=== PATIENT | female | born 2000 | race African-American/Black ===

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

== ENCOUNTER 2018-01-21 20:51 | Emergency (ER) | payer SELFPAY ==
--- NOTE | 2018-01-21 21:13 | ED.ADGEN ---
Past History Past Medical History: No Pertinent History, Migraines, UTI Past Surgical History: No Surgical History Smoking: Non-smoker Alcohol Use: None Drug Use: None Adult General Chief Complaint Chief Complaint ".. I got a headache.. it been constant the last couple days.. " [facility] HPI Patient is a 17 year old female who presents with above hx and complaints generalized headache that has been somewhat persistent last 2 days. No history of travel. No history of trauma. No specific ill contacts. Patient has had some nausea. Patient also has had some congestion. Patient up-to-date with vaccinations. No flu vaccination however this fall. Patient is normally healthy. She follows with Dr. Jojo Mckinnon. She has had previous headaches before that by history or diagnosed as migraines. No history of drug use. Review of Systems Review of Systems Constitutional: Denies fever or chills [] Eyes: Denies change in visual acuity, redness, or eye pain [] HENT: Denies nasal congestion or sore throat [] Respiratory: Denies cough or shortness of breath [] Cardiovascular: No additional information not addressed in HPI [] GI: Denies abdominal pain, nausea, vomiting, bloody stools or diarrhea [] : Denies dysuria or hematuria [] Musculoskeletal: Denies back pain or joint pain [] Integument: Denies rash or skin lesions [] Neurologic: Complaints of headache. Denies, focal weakness or sensory changes [] Endocrine: Denies polyuria or polydipsia [] All other systems were reviewed and found to be within normal limits, except as documented in this note. Family History Family History Noncontributory Current Medications Current Medications Current Medications Medications (Trade) Dose Ordered Sig/Oumar Start Time Stop Time Status Last Admin Dose Admin Cephalexin HCl (Keflex) 500 mg 1X ONCE 01/21/18 23:45 01/21/18 23:46 DC 01/21/18 23:45 500 MG Diphenhydramine HCl (Benadryl) 50 mg 1X ONCE 01/21/18 23:45 01/21/18 23:46 DC 01/21/18 23:45 50 MG Ketorolac Tromethamine (Toradol) 30 mg 1X ONCE 01/21/18 23:45 01/21/18 23:46 DC 01/21/18 23:45 30 MG Magnesium Hydroxide (Milk Of Magnesia) 2,400 mg 1X ONCE 01/21/18 23:45 01/21/18 23:46 DC 01/21/18 23:45 2,400 MG Multivitamins/ Minerals 10 ml/ Folic Acid 1 mg/ Thiamine HCl 100 mg/Lactated Ringer's 1,011.2 ml @ 1,000 mls/ hr 1X ONCE 01/21/18 21:45 01/21/18 22:45 DC 01/21/18 21:45 1,000 MLS/HR Ondansetron HCl (Zofran) 8 mg 1X ONCE 01/21/18 21:30 01/21/18 21:39 DC 01/21/18 21:30 8 MG Oxycodone/ Acetaminophen (Percocet 5/325) 2 tab 1X ONCE 01/21/18 23:45 01/21/18 23:46 DC 01/21/18 23:45 2 TAB Promethazine HCl (Phenergan Im) 25 mg 1X ONCE 01/21/18 23:45 01/21/18 23:46 DC 01/21/18 23:45 25 MG Sumatriptan Succinate (Imitrex) 6 mg 1X ONCE 01/21/18 23:45 01/21/18 23:46 DC 01/21/18 23:45 6 MG See nursing for home medications Allergies Allergies Allergies Coded Allergies Type Severity Reaction Last Updated Verified No Known Drug Allergies 06/04/14 No Physical Exam Physical Exam Constitutional: Well developed, well nourished, moderately acute distress, non- toxic appearance. [] HENT: Normocephalic, atraumatic, bilateral external ears normal, oropharynx moist, no oral exudates, nose rhinorrhea. No temporal artery tenderness Eyes: PERRLA, EOMI, conjunctiva normal, no discharge. [] Neck: Normal range of motion, no tenderness, supple, no stridor. [] Cardiovascular:Heart rate regular rhythm, no murmur [] Lungs & Thorax: Bilateral breath sounds clear to auscultation [] Abdomen: Bowel sounds normal, soft, no tenderness, no masses, no pulsatile masses. [] Skin: Warm, dry, no erythema, no rash. [] Back: No tenderness, no CVA tenderness. [] Extremities: No tenderness, no cyanosis, no clubbing, ROM intact, no edema. [] DTRs are +2 patella and brachial. Serologist equal. No drift. Neurologic: Alert and oriented X 3, normal motor function, normal sensory function, no focal deficits noted. [] Psychologic: Affect anxious, judgement normal, mood normal. [] Current Patient Data Vital Signs Vital Signs Date Time Temp Pulse Resp B/P (MAP) Pulse Ox O2 Delivery O2 Flow Rate FiO2 01/22/18 00:01 100.8 102 20 99 Room Air Lab Results Laboratory Tests Test 01/21/18 21:24 01/21/18 22:00 Urine Collection Type Unknown Urine Color Yellow Urine Clarity Hazy Urine pH 5.5 Urine Specific [place] 1.020 Urine Protein 30 mg/dl (NEG-TRACE) Urine Glucose (UA) Neg mg/dL (NEG) Urine Ketones (Stick) Trace mg/dL (NEG) Urine Blood Large (NEG) Urine Nitrite Neg (NEG) Urine Bilirubin Neg (NEG) Urine Urobilinogen Dipstick 2 mg/dL (0.2 mg/dL) Urine Leukocyte Esterase Small (NEG) Urine RBC >40 /HPF (0-2) Urine WBC 5-10 /HPF (0-4) Urine Squamous Epithelial Cells Few /LPF Urine Bacteria Few /HPF (0-FEW) Urine Mucus Mod /LPF Urine Opiates Screen Neg (NEG) Urine Methadone Screen Neg (NEG) Urine Barbiturates Neg (NEG) Urine Phencyclidine Screen Neg (NEG) Urine Amphetamine/Methamphetamine Neg (NEG) Urine Benzodiazepines Screen Neg (NEG) Urine Cocaine Screen Neg (NEG) Urine Cannabinoids Screen Neg (NEG) Urine Ethyl Alcohol Neg (NEG) Influenza Type A (Rapid) Negative (NEGATIVE) Influenza Type B (Rapid) Negative (NEGATIVE) Group A Streptococcus Rapid Negative (NEGATIVE) White Blood Count 8.1 x10^3/uL (4.0-11.0) Red Blood Count 3.86 x10^6/uL (3.50-5.40) Hemoglobin 12.7 g/dL (12.0-15.5) Hematocrit 36.5 % (36.0-47.0) Mean Corpuscular Volume 95 fL (79-100) Mean Corpuscular Hemoglobin 33 pg (25-35) Mean Corpuscular Hemoglobin Concent 35 g/dL (31-37) Red Cell Distribution Width 13.1 % (11.5-14.5) Platelet Count 248 x10^3/uL (140-400) Neutrophils (%) (Auto) 80 % (31-73) H Lymphocytes (%) (Auto) 13 % (24-48) L Monocytes (%) (Auto) 7 % (0-9) Eosinophils (%) (Auto) 0 % (0-3) Basophils (%) (Auto) 0 % (0-3) Neutrophils # (Auto) 6.4 x10^3uL (1.8-7.7) Lymphocytes # (Auto) 1.0 x10^3/uL (1.0-4.8) Monocytes # (Auto) 0.6 x10^3/uL (0.0-1.1) Eosinophils # (Auto) 0.0 x10^3/uL (0.0-0.7) Basophils # (Auto) 0.0 x10^3/uL (0.0-0.2) Erythrocyte Sedimentation Rate 7 (0-25) Prothrombin Time 11.8 SEC (9.4-11.4) H Prothrombin Time INR 1.2 (0.9-1.1) H PTT 31 SEC (23-33) Sodium Level 138 mmol/L (136-145) Potassium Level 3.4 mmol/L (3.5-5.1) L Chloride Level 102 mmol/L (98-107) Carbon Dioxide Level 26 mmol/L (21-32) Anion Gap 10 (6-14) Blood Urea Nitrogen 6 mg/dL (7-20) L Creatinine 0.7 mg/dL (0.6-1.0) Estimated GFR (Cockcroft-Gault) 130.4 Glucose Level 92 mg/dL (70-99) Calcium Level 9.3 mg/dL (8.5-10.1) Magnesium Level 1.7 mg/dL (1.8-2.4) L EKG EKG [] Radiology/Procedures Radiology/Procedures My interpretation CT of head shows no shift, mass, edema, bleed, or fracture. See formal report when available[] Course & Med Decision Making Course & Med Decision Making Pertinent Labs and Imaging studies reviewed. (See chart for details). Patient declines spinal tap this time. Patient exhibits UCAR capacity . Take Tylenol and ibuprofen as needed for discomfort or fever. Take Zofran 8 mg up 4 times a day for nausea and vomiting. Take Imitrex 100 mg at the beginning if any onset of migraine type headache. Take no more than 200 mg Imitrex in a 24 -hour period. For marked discomfort may take Vicoprofen up 4 times a day.. Return if any concerns. Patient to push fruit juices. Patient to take Keflex 500 mg 3 times a day. For 7 days. Must follow up urine cultures. Return if any concerns. Must follow-up primary care. [] Final Impression Final Impression 1. Migraine variant-headache 2. Viral syndrome 3. Hypokalemia 4. Hyper magnesium 5. Urinary tract infection[] Problems: Dragon Disclaimer Dragon Disclaimer This electronic medical record was generated, in whole or in part, using a voice recognition dictation system. JOHN GRADY MD Jan 21, 2018 21:13
[2018-01-21] MEDS ORDERED: ONDANSETRON PF 4 MG/2 ML VIAL. IV ONE (21:30)
[2018-01-21] MEDS ORDERED: MVI, ADULT NO.4 WITH VIT K 10 ML, FOLIC ACID SYRINGE for ER 1 MG, THIAMINE 100 MG in IV... IV ONE ×4 (21:45)
--- NOTE | 2018-01-21 21:50 | RAD ---
Clinical Indication: Severe headaches and weakness Technique: Study is dated January 21, 2018. CT images of the head were obtained from the skull base to the vertex without IV contrast. There are no comparison studies available. One or more of the following individualized dose reduction techniques were utilized for this examination: 1. Automated exposure control 2. Adjustment of the mA and/or kV according to patient size 3. Use of iterative reconstruction technique Findings: The ventricles are normal in size and configuration. Cavum septum pellucidum is noted. There is no hemorrhage, extraaxial collection, mass, or midline shift. There is no large vascular distribution acute infarct. The posterior fossa and brainstem are unremarkable. Orbits are normal. The included paranasal sinuses and mastoid air cells are clear. There is no skull fracture appreciated on bone level images. Impression: No acute intracranial findings. Electronically signed by: Daryl Luong MD (01/21/2018 9:47 PM) [facility]
[2018-01-21 22:09] LABS: INFLUENZA A PATIENT NEGATIVE (NEGATIVE); INFLUENZA B PATIENT NEGATIVE (NEGATIVE)
[2018-01-21 22:10] LABS: AMPHETAMINE/METHAMPHETAMINE NEG (NEG); BARBITURATES NEG (NEG); BENZODIAZEPINES NEG (NEG); CANNABINOIDS NEG (NEG); COCAINE NEG (NEG); METHADONE NEG (NEG); OPIATES NEG (NEG); PHENCYCLIDINE NEG (NEG)
[2018-01-21 22:16] LABS: BILIRUBIN,URINE NEG (NEG); CLARITY,URINE HAZY; COLOR,URINE YELLOW; GLUCOSE,URINE NEG (NEG); UROBILINOGEN,URINE 2 mg/dL (0.2 mg/dL)
[2018-01-21 22:17] LABS: BACTERIA,URINE FEW /HPF (0-FEW); NITRITE,URINE NEG (NEG); RBC,URINE >40 /HPF (0-2); SQUAMOUS EPITHELIAL CELL,UR FEW /LPF
[2018-01-21 22:40] LABS: BASO % 0 % (0-3); EOS % 0 % (0-3); HEMATOCRIT 36.5 % (36.0-47.0); HEMOGLOBIN 12.7 g/dL (12.0-15.5); LYMPH % 13 % (24-48); MEAN CORPUSCULAR HEMOGLOBIN 33 pg (25-35); MEAN CORPUSCULAR HGB CONC 35 g/dL (31-37); MEAN CORPUSCULAR VOLUME 95 fL (79-100); MONO # 0.6 x10^3/uL (0.0-1.1); MONO % 7 % (0-9); NEUT # 6.4 x10^3uL (1.8-7.7); NEUT % 80 % (31-73); PLATELET COUNT 248 x10^3/uL (140-400); RED BLOOD COUNT 3.86 x10^6/uL (3.50-5.40); RED CELL DISTRIBUTION WIDTH 13.1 % (11.5-14.5); WHITE BLOOD COUNT 8.1 x10^3/uL (4.0-11.0)
[2018-01-21 22:45] LABS: CALCIUM 9.3 mg/dL (8.5-10.1); CREATININE 0.7 mg/dL (0.6-1.0); GFR 130.4; MAGNESIUM 1.7 mg/dL (1.8-2.4); POTASSIUM 3.4 mmol/L (3.5-5.1)
[2018-01-21] MEDS ORDERED: CEPH-264 PO (23:37)
[2018-01-21] MEDS ORDERED: ONDA8TAB12 PO (23:37)
[2018-01-21] MEDS ORDERED: HYDR-79 PO (23:37)
[2018-01-21] MEDS ORDERED: SUMA100T3 PO (23:37)
[2018-01-21] MEDS ORDERED: diphenhydrAMINE 50 MG/ML VIAL IVP ONE (23:45)
[2018-01-21] MEDS ORDERED: SUMAtriptan. 6 MG/0.5 ML VIAL SQ ONE (23:45)
[2018-01-21] MEDS ORDERED: PROMETHAZINE IM 25 MG/ML VIAL IM ONE (23:45)
[2018-01-21] MEDS ORDERED: MAGNESIUM HYDROXIDE 2,400 MG/30 ML ORAL.SUSP. PO ONE (23:45)
[2018-01-21] MEDS ORDERED: oxyCODONE/APAP 5/325 1 TAB TABLET PO ONE (23:45)
[2018-01-21] MEDS ORDERED: CEPHALEXIN 250 MG CAPSULE PO ONE (23:45)
[2018-01-21] MEDS ORDERED: KETOROLAC 30 MG/ML VIAL. IV ONE (23:45)
[2018-01-22 00:35] VITALS: BP 105/43
== END 2018-01-22 00:38 | disposition home or self-care (01) ==
LOC: ER 20:51
DX: G43.909 Migraine, unspecified, not intractable, without status migrainosus (principal); B34.9 Viral infection, unspecified; E87.6 Hypokalemia; E83.41 Hypermagnesemia; N39.0 Urinary tract infection, site not specified
CPT/HCPCS: 36415; 70450; 80048; 80307; 81001; 83735; 85025; 85610; 85651; 85730; 87070; 87086; 87186; 87804; 87880; 96365; 96372; 96375; 99285; J1200; J1885; J2405; J2550; J3030; J7120; G0479

== ENCOUNTER 2018-02-17 23:59 | Emergency (ER) | payer SELFPAY ==
[~2018-02-17] VITALS: Ht 165.1 cm; Wt 58.5 kg
[~2018-02-17 23:59] MED LIST: CEPH-264 PO; HYDR-79 PO; ONDA8TAB12 PO; SUMA100T3 PO
[2018-02-18] MEDS ORDERED: ACETAMINOPHEN 325 MG TABLET PO ONE (01:30)
[2018-02-18] MEDS ORDERED: IV NORMAL SALINE 1,000ML 1,000 ML IV ONE ×2 (01:30→02:15)
--- NOTE | 2018-02-18 01:30 | PHYS DOC ---
Past History Past Medical History: Migraines, UTI Past Surgical History: No Surgical History Smoking: Non-smoker Alcohol Use: None Drug Use: None Adult General Chief Complaint Chief Complaint: MULTIPLE COMPLAINTS HPI HPI 17-year-old female presenting to the emergency department today with left-sided flank pain and a headache. The pain in her flank is sharp shooting pain mild to moderate intermittent and without alleviating factors. She denies polyuria or dysuria. She has a history of UTIs. Her headache is sharp nonradiating mild. She denies neck stiffness or nuchal rigidity. She denies blood in her urine. Review of systems is negative for chest pain shortness of breath. Negative for nausea or vomiting. All other review of systems is negative unless otherwise noted in history of present illness. ED course: 17-year-old female presenting the emergency department today with left flank pain. On arrival she is febrile, well-appearing. Nontoxic appearing. On examination she has normal range of motion of the neck. No nuchal rigidity. Lungs are clear bilaterally. Regular rate and rhythm on cardiac auscultation. Abdomen is soft and nontender palpation without rebound tenderness or guarding. Negative McBurney's point. Negative Stephens sign. Patient has mild left CVA tenderness to palpation. Otherwise unremarkable examination. IV established. Fluids and Tylenol ordered. Urinalysis suggestive of pyelonephritis. Patient has tachycardia and soft blood pressure (90) on reexamination. I ordered a second liter fluids and IV Rocephin. After treatment patient is feeling much better and desires to be discharged home. I discussed risks and benefits of discharge. I am recommending she be admitted to the hospital but she strongly desires to be discharged home. Patient understands risk of and disability. Given the patient's strong desire to give the patient oral Bactrim to leave AGAINST MEDICAL ADVICE. Patient is welcome to come back to be admitted if she feels worse or changes her mind. Review of Systems Review of Systems SEE ABOVE. Current Medications Current Medications Current Medications Medications (Trade) Dose Ordered Sig/Oumar Start Time Stop Time Status Last Admin Dose Admin Acetaminophen (Tylenol) 650 mg 1X ONCE 02/18/18 01:30 02/18/18 01:31 Sodium Chloride 1,000 ml @ 1,000 mls/hr 1X ONCE 02/18/18 01:30 02/18/18 02:29 Allergies Allergies Allergies Coded Allergies Type Severity Reaction Last Updated Verified No Known Drug Allergies 06/04/14 No Physical Exam Physical Exam SEE ABOVE Constitutional: Well developed, well nourished, no acute distress, non-toxic appearance. [] HENT: Normocephalic, atraumatic, bilateral external ears normal, oropharynx moist, no oral exudates, nose normal. [] Eyes: PERRLA, EOMI, conjunctiva normal, no discharge. [] Neck: Normal range of motion, no tenderness, supple, no stridor. [] Cardiovascular:Heart rate regular rhythm, no murmur [] Lungs & Thorax: Bilateral breath sounds clear to auscultation [] Abdomen: Bowel sounds normal, soft, no tenderness, no masses, no pulsatile masses. [] Skin: Warm, dry, no erythema, no rash. [] Back: nontender midline. Extremities: No tenderness, no cyanosis, no clubbing, ROM intact, no edema. [] Neurologic: Alert and oriented X 3, normal motor function, normal sensory function, no focal deficits noted. [] Psychologic: Affect normal, judgement normal, mood normal. [] EKG EKG [] Radiology/Procedures Radiology/Procedures [] Course & Med Decision Making Course & Med Decision Making Pertinent Labs and Imaging studies reviewed. (See chart for details) [] Dragon Disclaimer Dragon Disclaimer This electronic medical record was generated, in whole or in part, using a voice recognition dictation system. Departure Departure: Impression: Primary Impression: Pyelonephritis Disposition: AGAINST MEDICAL ADVICE Condition: GUARDED Referrals: PCP,NO (PCP) NICHOL FRAUSTO MD Patient Instructions: Pyelonephritis, Adult Scripts Sulfamethoxazole/Trimethoprim (BACTRIM DS TABLET) 1 Each Tablet 1 TAB PO BID, #20 TAB Prov: ABRIL SAMANO MD 02/18/18 ABRIL SAMANO MD Feb 18, 2018 01:30
[2018-02-18 01:36] LABS: BASO % 0 % (0-3); EOS % 0 % (0-3); HEMATOCRIT 39.4 % (36.0-47.0); HEMOGLOBIN 13.6 g/dL (12.0-15.5); LYMPH % 12 % (24-48); MEAN CORPUSCULAR HEMOGLOBIN 32 pg (25-35); MEAN CORPUSCULAR HGB CONC 35 g/dL (31-37); MEAN CORPUSCULAR VOLUME 94 fL (79-100); MONO # 0.9 x10^3/uL (0.0-1.1); MONO % 11 % (0-9); NEUT # 6.2 x10^3uL (1.8-7.7); NEUT % 76 % (31-73); PLATELET COUNT 247 x10^3/uL (140-400); RED BLOOD COUNT 4.21 x10^6/uL (3.50-5.40); RED CELL DISTRIBUTION WIDTH 13.7 % (11.5-14.5); WHITE BLOOD COUNT 8.2 x10^3/uL (4.0-11.0)
[2018-02-18 01:51] LABS: PREG TEST PT QUAL NEGATIVE (NEG)
[2018-02-18 01:53] LABS: ALBUMIN 4.2 g/dL (3.4-5.0); CALCIUM 9.1 mg/dL (8.5-10.1); CREATININE 0.8 mg/dL (0.6-1.0); DIRECT BILIRUBIN 0.1 mg/dL (0.0-0.2); GFR 111.8; POTASSIUM 3.4 mmol/L (3.5-5.1); TOTAL BILIRUBIN 0.4 mg/dL (0.2-1.0); TOTAL PROTEIN 8.8 g/dL (6.4-8.2)
[2018-02-18 01:55] LABS: BILIRUBIN,URINE SMALL (NEG); CLARITY,URINE CLOUDY; COLOR,URINE AMBER; GLUCOSE,URINE NEG (NEG); NITRITE,URINE POS (NEG); RBC,URINE >40 /HPF (0-2); UROBILINOGEN,URINE 4 mg/dL (0.2 mg/dL)
[2018-02-18 01:56] LABS: BACTERIA,URINE MANY /HPF (0-FEW); SQUAMOUS EPITHELIAL CELL,UR FEW /LPF; WBC,URINE >40 /HPF (0-4)
[2018-02-18] MEDS ORDERED: SULF1TAB24 PO (02:02)
[2018-02-18] MEDS ORDERED: IV NORMAL SALINE 50ML 50 ML ONE (02:28)
[2018-02-18] MEDS ORDERED: cefTRIAXone SODIUM 1 GM VIAL IV ONE (02:28)
[2018-02-18 03:33] VITALS: BP 100/69
== END 2018-02-18 03:43 | disposition home or self-care (01) ==
LOC: ER 23:59
DX: N12 Tubulo-interstitial nephritis, not specified as acute or chronic (principal); G43.909 Migraine, unspecified, not intractable, without status migrainosus; Z87.440 Personal history of urinary (tract) infections
CPT/HCPCS: 36415; 80048; 80076; 81001; 81025; 83690; 84703; 85025; 87086; 96361; 96365; 99284; J0696; J7030

== ENCOUNTER 2018-02-18 23:18 | Inpatient (IN) | payer SELFPAY ==
[~2018-02-18] VITALS: Ht 165.1 cm; Wt 56.9 kg
[~2018-02-18 23:18] MED LIST changes: +SULF1TAB24 PO
--- NOTE | 2018-02-18 23:39 | ED.ADGEN ---
Past History Past Medical History: Kidney Stones, Migraines, UTI Past Surgical History: Tonsillectomy Smoking: Non-smoker Alcohol Use: None Drug Use: None Adult General Chief Complaint Chief Complaint ".. I got severe Lt. flank pain.... I was here yesterday.. and they wanted to admit me for bad UTI... but I did not stay... and I have not filled my antibiotics..." HPI HPI Patient is a 17 year old female who presents with above hx and complaints of Lt. flank pain and UTI. Pt. has not filled antibiotics. Pt. denies pelvic discharge. Pt. denies trauma, ill contacts, bad food, bowel problems or immunosuppression. Pt. seen yesterday and was to be admitted for UTI and pyelonephritis, but pt. refused. Pt. has hx of prior kidney stone and ovarian cysts. Pt. does not have primary she follows with. Review of Systems Review of Systems Constitutional: Denies fever or chills [] Eyes: Denies change in visual acuity, redness, or eye pain [] HENT: Denies nasal congestion or sore throat [] Respiratory: Denies cough or shortness of breath [] Cardiovascular: No additional information not addressed in HPI [] GI: Complaints of Lt flank and abdominal pain, nausea. Denies vomiting, bloody stools or diarrhea [] : Denies dysuria or hematuria [] Musculoskeletal: Denies back pain or joint pain [] Integument: Denies rash or skin lesions [] Neurologic: Denies headache, focal weakness or sensory changes [] Endocrine: Denies polyuria or polydipsia [] All other systems were reviewed and found to be within normal limits, except as documented in this note. Family History Family History Non-contributory Current Medications Current Medications Current Medications Medications (Trade) Dose Ordered Sig/Oumar Start Time Stop Time Status Last Admin Dose Admin Ceftriaxone Sodium (Rocephin) 1 gm DAILY06 02/19/18 04:00 Ibuprofen (Motrin) 400 mg QIDPRN PRN 02/19/18 03:45 Ketorolac Tromethamine (Toradol) 30 mg 1X ONCE 02/19/18 02:30 02/19/18 02:30 DC Lactated Ringer's 1,000 ml @ 1,000 mls/hr Q1H 02/19/18 00:00 02/19/18 00:59 DC 02/19/18 00:00 1,000 MLS/HR Ondansetron HCl (Zofran) 4 mg PRN Q4HRS PRN 02/19/18 03:45 02/20/18 03:44 Allergies Allergies Allergies Coded Allergies Type Severity Reaction Last Updated Verified No Known Drug Allergies 06/04/14 No Physical Exam Physical Exam Constitutional: Well developed, well nourished, Moderately acute distress, non- toxic appearance. [] HENT: Normocephalic, atraumatic, bilateral external ears normal, oropharynx moist, no oral exudates, nose normal. [] Eyes: PERRLA, EOMI, conjunctiva normal, no discharge. [] Neck: Normal range of motion, no tenderness, supple, no stridor. [] Cardiovascular:Heart rate regular rhythm, no murmur [] Lungs & Thorax: Bilateral breath sounds equal at apex with scattered wheezes on auscultation [] Abdomen: Bowel sounds decreased, soft, lt flank pain and abd. tenderness, no masses, no pulsatile masses. No rebound. Mild distention. Skin: Warm, dry, no erythema, no rash. [] Back: No tenderness, Lt. CVA tenderness. [] Extremities: No tenderness, no cyanosis, no clubbing, ROM intact, no edema. [] No psoas or heel tap. Neurologic: Alert and oriented X 3, normal motor function, normal sensory function, no focal deficits noted. [] Psychologic: Affect anxious, judgement normal, mood normal. [] Current Patient Data Vital Signs Vital Signs Date Time Temp Pulse Resp B/P (MAP) Pulse Ox O2 Delivery O2 Flow Rate FiO2 02/18/18 23:25 99.3 82 20 100 Room Air Lab Results Laboratory Tests Test 02/18/18 23:38 02/18/18 23:50 Urine Collection Type Unknown Urine Color Yellow Urine Clarity Hazy Urine pH 5.5 Urine Specific [place] >=1.030 Urine Protein 100 mg/dl (NEG-TRACE) Urine Glucose (UA) Neg mg/dL (NEG) Urine Ketones (Stick) Trace mg/dL (NEG) Urine Blood Mod (NEG) Urine Nitrite Neg (NEG) Urine Bilirubin Neg (NEG) Urine Urobilinogen Dipstick 1 mg/dL (0.2 mg/dL) Urine Leukocyte Esterase Neg (NEG) Urine RBC 3-5 /HPF (0-2) Urine WBC 1-4 /HPF (0-4) Urine Squamous Epithelial Cells Few /LPF Urine Bacteria Few /HPF (0-FEW) Urine Mucus Slight /LPF Urine Opiates Screen Neg (NEG) Urine Methadone Screen Neg (NEG) Urine Barbiturates Neg (NEG) Urine Phencyclidine Screen Neg (NEG) Urine Amphetamine/Methamphetamine Neg (NEG) Urine Benzodiazepines Screen Neg (NEG) Urine Cocaine Screen Neg (NEG) Urine Cannabinoids Screen Neg (NEG) Urine Ethyl Alcohol Neg (NEG) White Blood Count 5.1 x10^3/uL (4.0-11.0) Red Blood Count 3.74 x10^6/uL (3.50-5.40) Hemoglobin 12.1 g/dL (12.0-15.5) Hematocrit 34.8 % (36.0-47.0) L Mean Corpuscular Volume 93 fL (79-100) Mean Corpuscular Hemoglobin 32 pg (25-35) Mean Corpuscular Hemoglobin Concent 35 g/dL (31-37) Red Cell Distribution Width 13.3 % (11.5-14.5) Platelet Count 213 x10^3/uL (140-400) Neutrophils (%) (Auto) 46 % (31-73) Lymphocytes (%) (Auto) 35 % (24-48) Monocytes (%) (Auto) 19 % (0-9) H Eosinophils (%) (Auto) 0 % (0-3) Basophils (%) (Auto) 1 % (0-3) Neutrophils # (Auto) 2.3 x10^3uL (1.8-7.7) Lymphocytes # (Auto) 1.8 x10^3/uL (1.0-4.8) Monocytes # (Auto) 1.0 x10^3/uL (0.0-1.1) Eosinophils # (Auto) 0.0 x10^3/uL (0.0-0.7) Basophils # (Auto) 0.0 x10^3/uL (0.0-0.2) Sodium Level 139 mmol/L (136-145) Potassium Level 3.4 mmol/L (3.5-5.1) L Chloride Level 103 mmol/L (98-107) Carbon Dioxide Level 26 mmol/L (21-32) Anion Gap 10 (6-14) Blood Urea Nitrogen 4 mg/dL (7-20) L Creatinine 0.7 mg/dL (0.6-1.0) Estimated GFR (Cockcroft-Gault) 130.4 Glucose Level 88 mg/dL (70-99) Calcium Level 8.9 mg/dL (8.5-10.1) Total Bilirubin 0.4 mg/dL (0.2-1.0) Direct Bilirubin 0.1 mg/dL (0.0-0.2) Aspartate Amino Transferase (AST) 16 U/L (15-37) Alanine Aminotransferase (ALT) 18 U/L (14-59) Alkaline Phosphatase 50 U/L (46-116) Total Protein 8.2 g/dL (6.4-8.2) Albumin 3.9 g/dL (3.4-5.0) EKG EKG [] Radiology/Procedures Radiology/Procedures My Interpretation of abdomen film shows no acute cardiopulmonary findings. No free air in the diaphragm. Increase stool in right colon. Nonspecific gas pattern. CT of abdomen shows a 5.5 cm[] left ovarian cyst. No findings of hydronephrosis or obstructive stone. No other surgical pathology appreciated. Ultrasound of abdomen shows ovarian cyst with flow to left ovary Course & Med Decision Making Course & Med Decision Making Pertinent Labs and Imaging studies reviewed. (See chart for details). Discussed presentation, testing and tx. plan with Dr. Cohen- will admit for further antibiotics and evaluation. [] Final Impression Final Impression 1. Renal Colic 2. Ovarian Cyst Lt. 5.5 cm 3. Hx of UTI- pyelonephritis 4, Hypokalemia 5. Hematuria [] Problems: Dragon Disclaimer Dragon Disclaimer This electronic medical record was generated, in whole or in part, using a voice recognition dictation system. JOHN GRADY MD Feb 18, 2018 23:38
[2018-02-19] MEDS ORDERED: ONDANSETRON PF 4 MG/2 ML VIAL. IV ONE
[2018-02-19] MEDS ORDERED: IV RINGERS SOLUTION,LACTATED 1,000 ML IV SCH
[2018-02-19 00:15] LABS: BASO % 1 % (0-3); EOS % 0 % (0-3); HEMATOCRIT 34.8 % (36.0-47.0); HEMOGLOBIN 12.1 g/dL (12.0-15.5); LYMPH # 1.8 x10^3/uL (1.0-4.8); LYMPH % 35 % (24-48); MEAN CORPUSCULAR HEMOGLOBIN 32 pg (25-35); MEAN CORPUSCULAR HGB CONC 35 g/dL (31-37); MEAN CORPUSCULAR VOLUME 93 fL (79-100); MONO % 19 % (0-9); NEUT # 2.3 x10^3uL (1.8-7.7); NEUT % 46 % (31-73); PLATELET COUNT 213 x10^3/uL (140-400); RED BLOOD COUNT 3.74 x10^6/uL (3.50-5.40); RED CELL DISTRIBUTION WIDTH 13.3 % (11.5-14.5); WHITE BLOOD COUNT 5.1 x10^3/uL (4.0-11.0)
[2018-02-19 00:24] LABS: ALBUMIN 3.9 g/dL (3.4-5.0); CALCIUM 8.9 mg/dL (8.5-10.1); CREATININE 0.7 mg/dL (0.6-1.0); DIRECT BILIRUBIN 0.1 mg/dL (0.0-0.2); GFR 130.4; POTASSIUM 3.4 mmol/L (3.5-5.1); TOTAL BILIRUBIN 0.4 mg/dL (0.2-1.0); TOTAL PROTEIN 8.2 g/dL (6.4-8.2)
[2018-02-19 00:24] LABS: BARBITURATES NEG (NEG); BENZODIAZEPINES NEG (NEG); CANNABINOIDS NEG (NEG); COCAINE NEG (NEG); METHADONE NEG (NEG); OPIATES NEG (NEG); PHENCYCLIDINE NEG (NEG)
[2018-02-19 00:28] LABS: BILIRUBIN,URINE NEG (NEG); CLARITY,URINE HAZY; COLOR,URINE YELLOW; GLUCOSE,URINE NEG (NEG); NITRITE,URINE NEG (NEG); UROBILINOGEN,URINE 1 mg/dL (0.2 mg/dL)
[2018-02-19 00:29] LABS: BACTERIA,URINE FEW /HPF (0-FEW); SQUAMOUS EPITHELIAL CELL,UR FEW /LPF
[2018-02-19 00:31] LABS: AMPHETAMINE/METHAMPHETAMINE NEG (NEG)
[2018-02-19] MEDS ORDERED: KETOROLAC 30 MG/ML VIAL. IV ONE ×3 (01:00→11:15)
--- NOTE | 2018-02-19 01:19 | RAD ---
CT abdomen pelvis without contrast: Reason for examination left flank pain. History of stones. Helical images were obtained through the abdomen pelvis with no intravenous or oral contrast administered. Reconstruction was performed in sagittal and coronal planes. Exposure: One or more of the following individualized dose reduction techniques were utilized for this examination: 1. Automated exposure control 2. Adjustment of the mA and/or kV according to patient size 3. Use of iterative reconstruction technique. The lung bases appear to be clear. The heart size is normal with no pericardial effusion evident. No abnormality seen at the liver, gallbladder, pancreas, spleen or adrenal glands. The kidneys show no renal masses, renal calculi hydronephrosis or evidence of obstructive uropathy. There is very little intra-abdominal fat with crowding of the intra-abdominal structures. What appears to be the appendix shows no wall thickening or inflammatory changes. The intestinal tract shows no acute abnormality. No abnormality seen at the abdominal aorta or inferior vena cava. In the pelvis, the bladder is not distended. No abnormality seen at the uterus. There is however a cystic structure in the lower right pelvis probably representing an ovarian cyst measuring 5.5 cm in size. No free fluid is evident. No acute bony abnormalities are evident. IMPRESSION: 5.5 cm cystic structure low in the right pelvis probably representing an ovarian cyst. No renal calculi or hydronephrosis evident. Electronically signed by: Merary Painter MD (02/19/2018 1:16 AM) [facility]
[2018-02-19] MEDS ORDERED: ONDANSETRON PF 4 MG/2 ML VIAL. IV PRN (03:45)
--- NOTE | 2018-02-19 03:57 | RAD ---
Pelvic ultrasound, transabdominal and transvaginal: Reason for examination: Left flank pain. Right ovarian cyst on CT. Transabdominal and transvaginal ultrasound examination of the pelvis was performed. Transabdominally, the uterus measures 7.2 x 3.8 x 4.9 cm in greatest dimensions. Endometrium is not abnormally thickened at 5.2 mm. Left ovary measures 3.2 x 1.4 x 2.4 cm in greatest dimension and contains a small follicle and good vascular flow. Right ovary measures 6.9 x 4.3 x 6.1 cm in greatest dimension and shows good vascular flow and contains an anechoic cyst. No free fluid is seen. Transvaginally, focal uterine mass is not identified. Endometrium is not abnormally thickened at 5.8 mm. The left ovary again shows a couple small follicles. The right ovary shows a 5.4 x 3.1 x 4.1 cm cyst. IMPRESSION: 5.4 cm cyst in the right ovary. Small follicles seen in the left ovary. Bilateral vascular flow seen in both ovaries. Electronically signed by: Merary Painter MD (02/19/2018 3:54 AM) [facility]
[2018-02-19 04:43] VITALS: BP 108/72
[2018-02-19] MEDS: cefTRIAXone IV Push 1 GM VIAL. IVP SCH (05:32)
--- NOTE | 2018-02-19 07:21 | RAD ---
Acute abdomen series with chest, 02/18/2018: History: Abdominal and chest pain Gas is present in large and small bowel in a nonspecific pattern. There is a moderate amount of stool in the right colon. No free air seen in the abdomen. There is no evidence of organomegaly or abnormal abdominal calcification. The heart size is normal. The lungs are clear. There is no evidence of pleural fluid. IMPRESSION: 1. Increased stool in the colon. 2. Otherwise no acute abdominal abnormality is detected.
[2018-02-19] MEDS: LACTOBACILLUS RHAMNOSUS GG 1 CAPSULE. PO SCH ×2 (08:45→19:30)
[2018-02-19] MEDS: IBUPROFEN 400 MG TABLET. PO PRN (09:36)
[2018-02-19 10:43] VITALS: BP 101/67
[2018-02-19] MEDS ORDERED: KETOROLAC 15 MG/ML VIAL. IV PRN (11:15)
[2018-02-19 15:10] VITALS: BP 98/60
--- NOTE | 2018-02-19 15:31 | HP ---
ADMIT DATE: 02/19/2018 HISTORY OF PRESENT ILLNESS: The patient is a 17-year-old -[place] female patient who came to the Emergency Room complaining of left flank pain, fever, nausea and vomiting. She apparently initially was given antibiotic and discharged home only to come back as she continued to have severe nausea and vomiting and back pain. She was evaluated in the Emergency Room and was admitted for acute pyelonephritis. PAST MEDICAL HISTORY: Significant for recurrent UTIs, nephrolithiasis, and bronchial asthma. PAST SURGICAL HISTORY: Significant for tonsillectomy and multiple cauterization of nostril for epistaxis. ALLERGIES: She has no known drug allergies. MEDICATIONS: She is currently on no medication by prescription or [id number]. FAMILY HISTORY: Unremarkable. SOCIAL HISTORY: She is single, has no children. She does not smoke, drink alcohol or recreational drugs. She works at [employer]. REVIEW OF SYSTEMS: As per history of present illness. PHYSICAL EXAMINATION GENERAL: When I examined her, she looked well and was clearly in no apparent respiratory distress, pale, but no jaundice or cyanosis. No lymphadenopathy, no thyromegaly. No jugular venous distention. No limb edema. VITAL SIGNS: Her heart rate was 82, blood pressure was 118/76, temperature was 99.3, respiratory rate was 20, and oxygen saturation was 100% on room air. HEENT: Showed normocephalic, atraumatic. NECK: Supple. HEART: Showed normal first and second sounds. No gallop, rub or murmur. CHEST: Clear to auscultation. No crepitation or rhonchi. ABDOMEN: Distended, soft. Tenderness mostly in the left renal angle. There is no guarding or rigidity. No organomegaly. All hernial orifices intact. Bowel sounds normal. NEUROLOGIC: She is awake, alert, responding appropriately. All cranial nerves intact. She moves extremities without difficulty. She ambulates without assistance or assistive devices. LABORATORY DATA: While in the Emergency Room, she had lab work done which showed her white cell count to be 5100, hemoglobin 12, hematocrit 35, MCV 93, and platelet count 213,000 with a manual differential showed 46% polymorphs, 35% lymphocytes, 19% monocytes. Her chemistry showed a serum sodium 139, potassium 3.4, chloride 103, bicarbonate 26, anion gap of 10, BUN 4, creatinine 0.7, estimated GFR was 130 mL per minute. Her glucose 88, calcium was 8.9. Total bilirubin, AST, ALT, alkaline phosphatase were normal. Her total protein was 8.2, albumin was 3.9. Her urinalysis showed the urine was yellow, hazy with a pH of 5.5, specific gravity of 1.030. There was large amount of protein. The urine was negative for glucose, trace of ketones, moderate amount of blood, negative for nitrites and leukocyte esterase. There is 3-5 rbc's, 1-4 wbc's, very few bacteria. Her urine toxicology screen was negative. While in the Emergency Room, she had acute abdomen series, which basically showed increase the stool in the colon, otherwise no acute abdominal abnormalities detected. She did have a CT scan of the abdomen and pelvis without contrast, which showed that the lung bases appear to be clear. The heart size is normal with no pericardial effusion evident. There is no abnormality seen at the liver, gallbladder, pancreas, spleen, adrenal glands. The kidneys show no renal masses, renal calculi, hydronephrosis, or evidence of obstructive uropathy. There is very little intraabdominal fat with crowding of the intra-abdominal structures, what appears to be the appendix shows no wall thickening or inflammatory changes of the intestinal tract shows no acute abnormality. No abnormality seen at the abdominal aorta or inferior vena cava in the pelvis. The bladder is not distended. No abnormality seen at the uterus, there is however cystic structure in the lower right pelvic area, representing an ovarian cyst measuring 5.5 cm in size. No free fluid is evident. No acute bony abnormality evident. Given the findings, the patient underwent transabdominal and transvaginal ultrasound, which showed that there is a focal uterine mass, it is not identified endometrium, it was not abnormally thickened at 5.8 mm, the left ovary again shows a couple of small follicles. The right ovary shows 5.4 x 3.1 x 4.1 cm cyst. Given recurrent abdominal left flank pain, fever and nausea and vomiting, the patient was admitted and was continued on IV ceftriaxone. We will continue with IV fluid, IV antibiotics, ibuprofen and await the result of the culture and sensitivity. ARLENE BILLINGS MD DR: MODESTA/mindy JOB#: [id number] / [id number]
[2018-02-19 18:44] VITALS: BP 105/69
[2018-02-20] MEDS: IBUPROFEN 400 MG TABLET. PO PRN (00:35)
--- NOTE | 2018-02-20 06:15 | PDOC ---
PROGRESS NOTES Assessment 1. UTI: Pt to transition to PO abx at d/c. 2. Hypokalemia: Pt to be given PO KCL, f/u on labs this AM. 3. Ovarian cyst: Not pathologic based on appearance, pt advised to make f/u appt w/ CHILD NUTRITION DIRECTOR to monitor this, though given her age and risk factors it is likely physiologic. 4. Disp: Likely d/c later today. Problems: Plan of Care: see other orders Subjective Pt states she is feeling ok. Denies n/v or abd pain, no fever, no SOA, no leg pain or chest pain, no flank pain, no pelvic pain. Interested in going home today. Objective Vital Signs Date Time Temp Pulse Resp B/P (MAP) Pulse Ox O2 Delivery O2 Flow Rate FiO2 02/19/18 23:35 Room Air 02/19/18 18:44 98.5 75 20 105/69 (81) 99 Intake and Output 02/20/18 07:00 Intake Total 920 ml Balance 920 ml Intake Oral 920 ml # Voids 1 Abdomen: Soft, No tenderness, No masses Heart: Regular rate, Normal S1, Normal S2, No murmurs Extremities: No edema, Normal pulses, Other (Corby's neg bilat) General: Alert, Oriented X3, Cooperative, No acute distress HEENT: PERRLA, EOMI, Mucous membr. moist/pink Lungs: Clear to auscultation, Normal air movement Neck: No JVD Psych/Mental Status: Mental status NL Skin: No rashes Review of Relevant I have reviewed the following items magnolia (where applicable) has been applied. Labs Laboratory Tests Test 02/18/18 23:38 02/18/18 23:50 Urine Collection Type Unknown Urine Color Yellow Urine Clarity Hazy Urine pH 5.5 Urine Specific [place] >=1.030 Urine Protein 100 mg/dl (NEG-TRACE) Urine Glucose (UA) Neg mg/dL (NEG) Urine Ketones (Stick) Trace mg/dL (NEG) Urine Blood Mod (NEG) Urine Nitrite Neg (NEG) Urine Bilirubin Neg (NEG) Urine Urobilinogen Dipstick 1 mg/dL (0.2 mg/dL) Urine Leukocyte Esterase Neg (NEG) Urine RBC 3-5 /HPF (0-2) Urine WBC 1-4 /HPF (0-4) Urine Squamous Epithelial Cells Few /LPF Urine Bacteria Few /HPF (0-FEW) Urine Mucus Slight /LPF Urine Opiates Screen Neg (NEG) Urine Methadone Screen Neg (NEG) Urine Barbiturates Neg (NEG) Urine Phencyclidine Screen Neg (NEG) Urine Amphetamine/Methamphetamine Neg (NEG) Urine Benzodiazepines Screen Neg (NEG) Urine Cocaine Screen Neg (NEG) Urine Cannabinoids Screen Neg (NEG) Urine Ethyl Alcohol Neg (NEG) White Blood Count 5.1 x10^3/uL (4.0-11.0) Red Blood Count 3.74 x10^6/uL (3.50-5.40) Hemoglobin 12.1 g/dL (12.0-15.5) Hematocrit 34.8 % (36.0-47.0) Mean Corpuscular Volume 93 fL (79-100) Mean Corpuscular Hemoglobin 32 pg (25-35) Mean Corpuscular Hemoglobin Concent 35 g/dL (31-37) Red Cell Distribution Width 13.3 % (11.5-14.5) Platelet Count 213 x10^3/uL (140-400) Neutrophils (%) (Auto) 46 % (31-73) Lymphocytes (%) (Auto) 35 % (24-48) Monocytes (%) (Auto) 19 % (0-9) Eosinophils (%) (Auto) 0 % (0-3) Basophils (%) (Auto) 1 % (0-3) Neutrophils # (Auto) 2.3 x10^3uL (1.8-7.7) Lymphocytes # (Auto) 1.8 x10^3/uL (1.0-4.8) Monocytes # (Auto) 1.0 x10^3/uL (0.0-1.1) Eosinophils # (Auto) 0.0 x10^3/uL (0.0-0.7) Basophils # (Auto) 0.0 x10^3/uL (0.0-0.2) Sodium Level 139 mmol/L (136-145) Potassium Level 3.4 mmol/L (3.5-5.1) Chloride Level 103 mmol/L (98-107) Carbon Dioxide Level 26 mmol/L (21-32) Anion Gap 10 (6-14) Blood Urea Nitrogen 4 mg/dL (7-20) Creatinine 0.7 mg/dL (0.6-1.0) Estimated GFR (Cockcroft-Gault) 130.4 Glucose Level 88 mg/dL (70-99) Calcium Level 8.9 mg/dL (8.5-10.1) Total Bilirubin 0.4 mg/dL (0.2-1.0) Direct Bilirubin 0.1 mg/dL (0.0-0.2) Aspartate Amino Transf (AST/SGOT) 16 U/L (15-37) Alanine Aminotransferase (ALT/SGPT) 18 U/L (14-59) Alkaline Phosphatase 50 U/L (46-116) Total Protein 8.2 g/dL (6.4-8.2) Albumin 3.9 g/dL (3.4-5.0) Microbiology 02/18/18 Blood Culture - Preliminary, Resulted NO GROWTH AFTER 1 DAY Medications Current Medications Lactated Ringer's 1,000 ml @ 1,000 mls/hr Q1H IV Last administered on at 00:00; Start 02/19/18 at 00:00; Stop 02/19/18 at 00:59; Status DC Ondansetron HCl (Zofran) 4 mg 1X ONCE IV Last administered on 02/19/18at 00:00 ; Start 02/19/18 at 00:00; Stop 02/19/18 at 00:06; Status DC Ketorolac Tromethamine (Toradol) 30 mg 1X ONCE IV Last administered on at 01:05; Start 02/19/18 at 01:00; Stop 02/19/18 at 01:01; Status DC Ketorolac Tromethamine (Toradol) 30 mg 1X ONCE IV ; Start 02/19/18 at 02:30; Stop 02/19/18 at 02:30; Status DC Ondansetron HCl (Zofran) 4 mg PRN Q4HRS PRN IV NAUSEA/VOMITING 1ST CHOICE; Start 02/19/18 at 03:45; Stop 02/20/18 at 03:44; Status DC Ceftriaxone Sodium 1 gm/ Sodium Chloride 50 ml @ 100 mls/hr DAILY IV ; Start at 09:00; Status UNV Ibuprofen (Motrin) 400 mg QIDPRN PRN PO MODERATE PAIN Last administered on 02/20at 00:35; Start 02/19/18 at 03:45 Ceftriaxone Sodium (Rocephin) 1 gm DAILY06 IVP Last administered on 02/19/18at 05:32; Start 02/19/18 at 04:00 Lactobacillus Rhamnosus (Culturelle) 1 cap BID PO Last administered on at 19:30; Start 02/19/18 at 09:00 Ketorolac Tromethamine (Toradol) 30 mg 1X ONCE IV Last administered on at 11:32; Start 02/19/18 at 11:15; Stop 02/19/18 at 11:20; Status DC Ketorolac Tromethamine (Toradol) 15 mg PRN Q6HRS PRN IV PAIN Last administered on 02/19/18at 19:30; Start 02/19/18 at 11:15; Stop 02/24/18 at 11:14 Potassium Chloride (Klor-Con) 40 meq 1X ONCE PO ; Start 02/20/18 at 06:15; Stop 02/20/18 at 06:16; Status UNV Active Scripts Active Bactrim Ds Tablet (Sulfamethoxazole/Trimethoprim) 1 Each Tablet 1 Tab PO BID Imitrex (Sumatriptan Succinate) 100 Mg Tablet 100 Mg PO 1X PRN Keflex (Cephalexin) 500 Mg Capsule 500 Mg PO TID 7 Days Zofran Odt (Ondansetron) 8 Mg Tab.rapdis 8 Mg PO QIDPRN PRN Hydrocodone-Ibuprofen 7.5-200 (Hydrocodone/Ibuprofen) 1 Each Tablet 1 Tab PO PRN Q6HRS PRN Vitals/I & O Vital Sign - Last 24 Hours 02/19/18 02/19/18 02/19/18 02/19/18 08:00 10:43 15:10 18:44 Temp 98.5 98.3 98.5 Pulse 79 72 75 Resp 20 20 20 B/P (MAP) 101/67 (78) 98/60 (73) 105/69 (81) Pulse Ox 99 99 99 O2 Delivery Room Air Room Air Room Air Room Air 02/19/18 02/19/18 20:15 23:35 O2 Delivery Room Air Room Air Intake and Output 02/19/18 02/19/18 02/20/18 15:00 23:00 07:00 Intake Total 440 ml 480 ml Balance 440 ml 480 ml FERN SAWYER MD Feb 20, 2018 06:15
[2018-02-20] MEDS: cefTRIAXone IV Push 1 GM VIAL. IVP SCH (06:17)
[2018-02-20 06:20] VITALS: BP 91/58
[2018-02-20 06:29] LABS: CALCIUM 8.8 mg/dL (8.5-10.1); CREATININE 0.6 mg/dL (0.6-1.0); GFR 155.8; POTASSIUM 3.9 mmol/L (3.5-5.1)
[2018-02-20 06:30] LABS: BASO % 0 % (0-3); EOS # 0.1 x10^3/uL (0.0-0.7); EOS % 3 % (0-3); HEMATOCRIT 30.4 % (36.0-47.0); HEMOGLOBIN 10.6 g/dL (12.0-15.5); LYMPH # 2.2 x10^3/uL (1.0-4.8); LYMPH % 56 % (24-48); MEAN CORPUSCULAR HEMOGLOBIN 33 pg (25-35); MEAN CORPUSCULAR HGB CONC 35 g/dL (31-37); MEAN CORPUSCULAR VOLUME 93 fL (79-100); MONO # 0.7 x10^3/uL (0.0-1.1); MONO % 17 % (0-9); NEUT # 0.9 x10^3uL (1.8-7.7); NEUT % 24 % (31-73); PLATELET COUNT 190 x10^3/uL (140-400); RED BLOOD COUNT 3.26 x10^6/uL (3.50-5.40); RED CELL DISTRIBUTION WIDTH 13.4 % (11.5-14.5); WHITE BLOOD COUNT 3.9 x10^3/uL (4.0-11.0)
[2018-02-20] MEDS ORDERED: POTASSIUM CHLORIDE 20 MEQ TABLET.ER. PO ONE (06:30)
[2018-02-20 07:34] LABS: % BASOS 1 % (0-3); % EOS 3 % (0-5); % LYMPHS 60 % (24-48); % MONOS 15 % (0-10); % SEGS 21 % (35-66); PLT ESTIMATE ADEQUATE (ADEQUATE)
[2018-02-20] MEDS: LACTOBACILLUS RHAMNOSUS GG 1 CAPSULE. PO SCH (08:41)
[2018-02-20 11:03] VITALS: BP 91/62
[2018-02-20] MEDS ORDERED: LACT1CAP19 PO (14:23)
--- NOTE | 2018-02-20 14:25 | DISCH ---
DISCHARGE INSTRUCTIONS-DC Condition on Discharge Condition on Discharge: Stable Problems: Activity after Discharge Activity Instructions for Disc: No restrictions Diet after Discharge Diet after Discharge: Regular Checks after Discharge Checks after discharge: Check your Temp as needed Contacting the DR. after DC Call your doctor for: If your condition worsens Follow-Up Follow up with: PCP in 1-2 weeks re: ovarian cyst FERN SAWYER MD Feb 20, 2018 14:25
--- NOTE | 2018-02-20 14:28 | PDOC3 ---
Discharge Summary Discharge Summary Date of Admission Date of Admission: Feb 19, 2018 at 04:00 Admitting Diagnosis Flank pain, possible pyelonephritis UTI Date of Discharge: Feb 20, 2018 Discharge Diagnosis Flank pain, no evidence of pyelonephritis UTI (culture pending) Ovarian cyst (5 cm, right ovary) Laboratory Findings Laboratory Tests Test 02/18/18 23:38 02/18/18 23:50 02/20/18 05:57 Urine Collection Type Unknown Urine Color Yellow Urine Clarity Hazy Urine pH 5.5 Urine Specific [place] >=1.030 Urine Protein 100 mg/dl (NEG-TRACE) Urine Glucose (UA) Neg mg/dL (NEG) Urine Ketones (Stick) Trace mg/dL (NEG) Urine Blood Mod (NEG) Urine Nitrite Neg (NEG) Urine Bilirubin Neg (NEG) Urine Urobilinogen Dipstick 1 mg/dL (0.2 mg/dL) Urine Leukocyte Esterase Neg (NEG) Urine RBC 3-5 /HPF (0-2) Urine WBC 1-4 /HPF (0-4) Urine Squamous Epithelial Cells Few /LPF Urine Bacteria Few /HPF (0-FEW) Urine Mucus Slight /LPF Urine Opiates Screen Neg (NEG) Urine Methadone Screen Neg (NEG) Urine Barbiturates Neg (NEG) Urine Phencyclidine Screen Neg (NEG) Urine Amphetamine/Methamphetamine Neg (NEG) Urine Benzodiazepines Screen Neg (NEG) Urine Cocaine Screen Neg (NEG) Urine Cannabinoids Screen Neg (NEG) Urine Ethyl Alcohol Neg (NEG) White Blood Count 5.1 x10^3/uL (4.0-11.0) 3.9 x10^3/uL (4.0-11.0) Red Blood Count 3.74 x10^6/uL (3.50-5.40) 3.26 x10^6/uL (3.50-5.40) Hemoglobin 12.1 g/dL (12.0-15.5) 10.6 g/dL (12.0-15.5) Hematocrit 34.8 % (36.0-47.0) 30.4 % (36.0-47.0) Mean Corpuscular Volume 93 fL (79-100) 93 fL (79-100) Mean Corpuscular Hemoglobin 32 pg (25-35) 33 pg (25-35) Mean Corpuscular Hemoglobin Concent 35 g/dL (31-37) 35 g/dL (31-37) Red Cell Distribution Width 13.3 % (11.5-14.5) 13.4 % (11.5-14.5) Platelet Count 213 x10^3/uL (140-400) 190 x10^3/uL (140-400) Neutrophils (%) (Auto) 46 % (31-73) 24 % (31-73) Lymphocytes (%) (Auto) 35 % (24-48) 56 % (24-48) Monocytes (%) (Auto) 19 % (0-9) 17 % (0-9) Eosinophils (%) (Auto) 0 % (0-3) 3 % (0-3) Basophils (%) (Auto) 1 % (0-3) 0 % (0-3) Neutrophils # (Auto) 2.3 x10^3uL (1.8-7.7) 0.9 x10^3uL (1.8-7.7) Lymphocytes # (Auto) 1.8 x10^3/uL (1.0-4.8) 2.2 x10^3/uL (1.0-4.8) Monocytes # (Auto) 1.0 x10^3/uL (0.0-1.1) 0.7 x10^3/uL (0.0-1.1) Eosinophils # (Auto) 0.0 x10^3/uL (0.0-0.7) 0.1 x10^3/uL (0.0-0.7) Basophils # (Auto) 0.0 x10^3/uL (0.0-0.2) 0.0 x10^3/uL (0.0-0.2) Sodium Level 139 mmol/L (136-145) 142 mmol/L (136-145) Potassium Level 3.4 mmol/L (3.5-5.1) 3.9 mmol/L (3.5-5.1) Chloride Level 103 mmol/L (98-107) 108 mmol/L (98-107) Carbon Dioxide Level 26 mmol/L (21-32) 28 mmol/L (21-32) Anion Gap 10 (6-14) 6 (6-14) Blood Urea Nitrogen 4 mg/dL (7-20) 9 mg/dL (7-20) Creatinine 0.7 mg/dL (0.6-1.0) 0.6 mg/dL (0.6-1.0) Estimated GFR (Cockcroft-Gault) 130.4 155.8 Glucose Level 88 mg/dL (70-99) 88 mg/dL (70-99) Calcium Level 8.9 mg/dL (8.5-10.1) 8.8 mg/dL (8.5-10.1) Total Bilirubin 0.4 mg/dL (0.2-1.0) Direct Bilirubin 0.1 mg/dL (0.0-0.2) Aspartate Amino Transf (AST/SGOT) 16 U/L (15-37) Alanine Aminotransferase (ALT/SGPT) 18 U/L (14-59) Alkaline Phosphatase 50 U/L (46-116) Total Protein 8.2 g/dL (6.4-8.2) Albumin 3.9 g/dL (3.4-5.0) Segmented Neutrophils % 21 % (35-66) Lymphocytes % 60 % (24-48) Monocytes % 15 % (0-10) Eosinophils % 3 % (0-5) Basophils % 1 % (0-3) Platelet Estimate Adequate (ADEQUATE) Hospital Course Pt was admitted due to possible pyelonephritis, failed outpt tx w/ oral abx. Treated w/ IV abx and pain meds. Sx's improved. Had CT and pelvic sonogram that both showed a right ovarian cyst (simple), 5.5 cm. Otherwise, no acute findings. Culture is still pending at time of discharge. Potassium was low on admission 3.2, but up to 3.7 at discharge. Pt will finish the Keflex prescription she was given previously. F/u with PCP regarding ovarian cyst. Condition at Discharge: Stable Home Meds Active Scripts Lactobacillus Rhamnosus Gg (CULTURELLE) 1 Each Cap.sprink, 1 CAP PO BID, #30 CAP 0 Refills Prov:FERN SAWYER MD 02/20/18 Sulfamethoxazole/Trimethoprim (BACTRIM DS TABLET) 1 Each Tablet, 1 TAB PO BID, # 20 TAB Prov:ABRIL SAMANO MD 02/18/18 Sumatriptan Succinate (IMITREX) 100 Mg Tablet, 100 MG PO 1X Y for HEADACHE, #10 TAB Prov:JOHN GRADY MD 01/21/18 Cephalexin (KEFLEX) 500 Mg Capsule, 500 MG PO TID for 7 Days, #21 CAP Prov:JOHN GRADY MD 01/21/18 Ondansetron (ZOFRAN ODT) 8 Mg Tab.rapdis, 8 MG PO QIDPRN Y for NAUSEA/VOMITING, #30 Prov:JOHN GRADY MD 01/21/18 Hydrocodone/Ibuprofen (HYDROCODONE-IBUPROFEN 7.5-200 ) 1 Each Tablet, 1 TAB PO PRN Q6HRS Y for PAIN, #30 TAB 0 Refills Prov:JOHN GRADY MD 01/21/18 Inpatient Meds Current Medications Lactated Ringer's 1,000 ml @ 1,000 mls/hr Q1H IV Last administered on at 00:00; Start 02/19/18 at 00:00; Stop 02/19/18 at 00:59; Status DC Ondansetron HCl (Zofran) 4 mg 1X ONCE IV Last administered on 02/19/18at 00:00 ; Start 02/19/18 at 00:00; Stop 02/19/18 at 00:06; Status DC Ketorolac Tromethamine (Toradol) 30 mg 1X ONCE IV Last administered on at 01:05; Start 02/19/18 at 01:00; Stop 02/19/18 at 01:01; Status DC Ketorolac Tromethamine (Toradol) 30 mg 1X ONCE IV ; Start 02/19/18 at 02:30; Stop 02/19/18 at 02:30; Status DC Ondansetron HCl (Zofran) 4 mg PRN Q4HRS PRN IV NAUSEA/VOMITING 1ST CHOICE; Start 02/19/18 at 03:45; Stop 02/20/18 at 03:44; Status DC Ceftriaxone Sodium 1 gm/ Sodium Chloride 50 ml @ 100 mls/hr DAILY IV ; Start at 09:00; Status UNV Ibuprofen (Motrin) 400 mg QIDPRN PRN PO MODERATE PAIN Last administered on 02/20at 00:35; Start 02/19/18 at 03:45 Ceftriaxone Sodium (Rocephin) 1 gm DAILY06 IVP Last administered on 02/20/18at 06:17; Start 02/19/18 at 04:00 Lactobacillus Rhamnosus (Culturelle) 1 cap BID PO Last administered on at 08:41; Start 02/19/18 at 09:00 Ketorolac Tromethamine (Toradol) 30 mg 1X ONCE IV Last administered on at 11:32; Start 02/19/18 at 11:15; Stop 02/19/18 at 11:20; Status DC Ketorolac Tromethamine (Toradol) 15 mg PRN Q6HRS PRN IV PAIN Last administered on 02/19/18at 19:30; Start 02/19/18 at 11:15; Stop 02/24/18 at 11:14 Potassium Chloride (Klor-Con) 40 meq 1X ONCE PO Last administered on at 06:27; Start 02/20/18 at 06:30; Stop 02/20/18 at 06:31; Status DC Active Scripts Active Culturelle (Lactobacillus Rhamnosus Gg) 1 Each Cap.sprink 1 Cap PO BID Bactrim Ds Tablet (Sulfamethoxazole/Trimethoprim) 1 Each Tablet 1 Tab PO BID Imitrex (Sumatriptan Succinate) 100 Mg Tablet 100 Mg PO 1X PRN Keflex (Cephalexin) 500 Mg Capsule 500 Mg PO TID 7 Days Zofran Odt (Ondansetron) 8 Mg Tab.rapdis 8 Mg PO QIDPRN PRN Hydrocodone-Ibuprofen 7.5-200 (Hydrocodone/Ibuprofen) 1 Each Tablet 1 Tab PO PRN Q6HRS PRN Activity: as tolerated Diet: Regular Follow-up Plan F/u with PCP in 1-2 weeks FERN SAWYER MD Feb 20, 2018 14:28
== END 2018-02-20 15:00 | disposition home or self-care (01) | DRG 690 ==
LOC: ER 23:18 → 1 SOUTH 02-19 04:00
PROVIDERS: ADMIT Internal Medicine; ATTEND Internal Medicine
DX: N39.0 Urinary tract infection, site not specified (principal); E87.6 Hypokalemia; G43.909 Migraine, unspecified, not intractable, without status migrainosus; N83.201 Unspecified ovarian cyst, right side; J45.909 Unspecified asthma, uncomplicated; N23 Unspecified renal colic; Z90.89 Acquired absence of other organs
CPT/HCPCS: 36415; 74022; 74176; 76830; 76856; 80048; 80076; 80307; 81001; 85007; 85025; 87040; J0696; J1885; J2405; J7120; G0479

== ENCOUNTER 2018-09-11 09:17 | Emergency (ER) | payer SELFPAY ==
[~2018-09-11] VITALS: Ht 165.1 cm; Wt 62.3 kg
[~2018-09-11 09:17] MED LIST changes: +LACT1CAP19 PO
--- NOTE | 2018-09-11 09:52 | PHYS DOC ---
Past History Past Medical History: Kidney Stones, Migraines, UTI Past Surgical History: Tonsillectomy Smoking: Non-smoker Alcohol Use: None Drug Use: None Adult General Chief Complaint Chief Complaint: HEADACHE HPI HPI Patient is a 18-year-old female who presents with complaint of migraine headache for the last 4 days. Patient states that she has been taking Excedrin Migraine as well as Aleve without any relief. She states that this is typical for her migraines and she rates the headache at a 10 out of 10. She describes the headache as throbbing in nature. She admits to nausea but no vomiting. She states that she does have photophobia. She does report to some tingling in her left hand and arm. She denies any lateralizing weakness. Patient states that headache is worsened when she bends over. She states that nothing improves her headache. Review of Systems Review of Systems Constitutional: Denies fever or chills [] Eyes: Denies change in visual acuity, redness, or eye pain [] Respiratory: Denies cough or shortness of breath [] Cardiovascular: No additional information not addressed in HPI [] GI: Denies abdominal pain. Admits to nausea but has had no vomiting. [] Neurologic: Complains of headache [] All other systems were reviewed and found to be within normal limits, except as documented in this note. Current Medications Current Medications Current Medications Medications (Trade) Dose Ordered Sig/Oumar Start Time Stop Time Status Last Admin Dose Admin Ketorolac Tromethamine (Toradol Im) 60 mg 1X ONCE 09/11/18 09:45 09/11/18 09:46 UNV Metoclopramide HCl (Reglan Vial) 10 mg 1X ONCE 09/11/18 09:45 09/11/18 09:46 UNV Sumatriptan Succinate (Imitrex) 6 mg 1X ONCE 09/11/18 09:45 09/11/18 09:46 UNV Allergies Allergies Allergies Coded Allergies Type Severity Reaction Last Updated Verified No Known Drug Allergies 06/04/14 No Physical Exam Physical Exam Constitutional: Well developed, well nourished, no acute distress, non-toxic appearance. [] HENT: Normocephalic, atraumatic, bilateral external ears normal, oropharynx moist, no oral exudates, nose normal. [] Eyes: PERRLA, EOMI, conjunctiva normal, no discharge. [] Neck: Normal range of motion, no tenderness, supple. [] Cardiovascular: Heart rate regular rhythm [] Lungs & Thorax: Bilateral breath sounds clear to auscultation [] Abdomen: Bowel sounds normal, soft. [] Skin: Warm, dry, no erythema, no rash. [] Extremities: No tenderness, no cyanosis, no clubbing, ROM intact, no edema. [] Neurologic: Alert and oriented X 3, normal motor function, normal sensory function, no focal deficits noted. [] EKG EKG [] Radiology/Procedures Radiology/Procedures [] Course & Med Decision Making Course & Med Decision Making Pertinent Labs and Imaging studies reviewed. (See chart for details) [] Dragon Disclaimer Dragon Disclaimer This electronic medical record was generated, in whole or in part, using a voice recognition dictation system. Departure Departure: Impression: Primary Impression: Migraine Disposition: 01 HOME, SELF-CARE Condition: STABLE Referrals: PCP,NO (PCP) Patient Instructions: Migraine Headache Scripts Ondansetron (ZOFRAN ODT) 4 Mg Tab.rapdis 1 TAB SL Q8HRS PRN for NAUSEA, #10 TAB Prov: ROLANDO POLK Jr. DO 09/11/18 Sumatriptan Succinate (IMITREX) 100 Mg Tablet 1 TAB PO UD PRN for HEADACHE, #9 TAB Prov: ROLANDO POLK Jr. DO 09/11/18 Problem Qualifiers Primary Impression: Migraine Migraine type: without aura Status migrainosus presence: without status migrainosus Intractability: not intractable Qualified Codes: G43.009 - Migraine without aura, not intractable, without status migrainosus ROLANDO POLK Jr. DO Sep 11, 2018 09:52
[2018-09-11] MEDS ORDERED: METOCLOPRAMIDE HCL 10 MG/2 ML VIAL. IM ONE (10:00)
[2018-09-11] MEDS ORDERED: SUMAtriptan SUCC 6 MG/0.5 ML VIAL SQ ONE (10:00)
[2018-09-11] MEDS ORDERED: KETOROLAC 60 MG/2 ML VIAL. IM ONE (10:00)
[2018-09-11 11:00] VITALS: BP 108/54
[2018-09-11] MEDS ORDERED: SUMA100T3 PO (11:06)
[2018-09-11] MEDS ORDERED: ONDA4TAB10 SL (11:06)
[2018-09-11] MEDS ORDERED: HYDROcodone/APAP 5/325MG 1 TAB TABLET PO ONE (11:15)
== END 2018-09-11 11:15 | disposition home or self-care (01) ==
LOC: ER 09:17
DX: G43.009 Migraine without aura, not intractable, without status migrainosus (principal); Z87.440 Personal history of urinary (tract) infections; Z87.442 Personal history of urinary calculi
CPT/HCPCS: 96372; 99284; J1885; J2765; J3030

== ENCOUNTER 2019-08-30 09:21 | Emergency (ER) | payer MEDICAID ==
[~2019-08-30 09:21] MED LIST changes: +HYDR-1179 PO; -HYDR-79 PO; +ONDA4TAB10 SL
[2019-08-30] MEDS ORDERED: IV NORMAL SALINE 1,000ML 1,000 ML IV ONE (09:45)
[2019-08-30 09:56] LABS: BASO % 0 % (0-3); EOS # 0.1 x10^3/uL (0.0-0.7); EOS % 2 % (0-3); HEMATOCRIT 33.2 % (36.0-47.0); HEMOGLOBIN 11.3 g/dL (12.0-15.5); LYMPH # 1.9 x10^3/uL (1.0-4.8); LYMPH % 28 % (24-48); MEAN CORPUSCULAR HEMOGLOBIN 33 pg (25-35); MEAN CORPUSCULAR HGB CONC 34 g/dL (31-37); MEAN CORPUSCULAR VOLUME 99 fL (79-100); MONO # 0.5 x10^3/uL (0.0-1.1); MONO % 8 % (0-9); NEUT # 4.2 x10^3uL (1.8-7.7); NEUT % 62 % (31-73); PLATELET COUNT 238 x10^3/uL (140-400); RED BLOOD COUNT 3.37 x10^6/uL (3.50-5.40); RED CELL DISTRIBUTION WIDTH 13.3 % (11.5-14.5); WHITE BLOOD COUNT 6.8 x10^3/uL (4.0-11.0)
[2019-08-30 10:12] LABS: ALBUMIN 3.3 g/dL (3.4-5.0); ALBUMIN/GLOBULIN RATIO 0.8 (1.0-1.7); CALCIUM 8.7 mg/dL (8.5-10.1); CREATININE 0.5 mg/dL (0.6-1.0); GFR 188.5; POTASSIUM 3.7 mmol/L (3.5-5.1); TOTAL BILIRUBIN 0.3 mg/dL (0.2-1.0); TOTAL PROTEIN 7.2 g/dL (6.4-8.2)
--- NOTE | 2019-08-30 10:21 | PHYS DOC ---
Past History Past Medical History: Asthma, Kidney Stones, Migraines, UTI, Other Additional Past Medical Histor: frequent nose bleed Past Surgical History: Tonsillectomy, Other Additional Past Surgical Histo: surgery on nose as child for nose bleed Smoking: Non-smoker Alcohol Use: None Drug Use: None Adult General Chief Complaint Chief Complaint: NOSEBLEED HPI HPI 19-year-old female presents with nosebleed. The patient had a nosebleed that lasted nearly an hour this morning. She has a history of these in the past. She' s had 3 surgical cauterizations. The last was several years ago. She came in because she was feeling a bit lightheaded and dizzy afterwards. She is also and wanted to make sure that the bleeding did not make her baseline anemia worse. She has not had transfusions for her anemia in the past. She has been eating and drinking normally. She denies fever or chills. She has no other complaints. Review of Systems Review of Systems Constitutional: Denies fever or chills [] Eyes: Denies change in visual acuity, redness, or eye pain [] HENT: Nosebleed. Denies nasal congestion or sore throat [] Respiratory: Denies cough or shortness of breath [] Cardiovascular: No additional information not addressed in HPI [] GI: Denies abdominal pain, nausea, vomiting, bloody stools or diarrhea [] : Denies dysuria or hematuria [] Musculoskeletal: Denies back pain or joint pain [] Integument: Denies rash or skin lesions [] Neurologic: Denies headache, focal weakness or sensory changes [] Endocrine: Denies polyuria or polydipsia [] All other systems were reviewed and found to be within normal limits, except as documented in this note. Current Medications Current Medications Current Medications Medications (Trade) Dose Ordered Sig/Oumar Start Time Stop Time Status Last Admin Dose Admin Sodium Chloride 1,000 ml @ 1,000 mls/hr 1X ONCE 08/30/19 09:45 08/30/19 10:44 08/30/19 09:47 1,000 MLS/HR Allergies Allergies Allergies Coded Allergies Type Severity Reaction Last Updated Verified No Known Drug Allergies 06/04/14 No Physical Exam Physical Exam Constitutional: Well developed, well nourished, no acute distress, non-toxic appearance. [] HENT: Normocephalic, atraumatic, bilateral external ears normal, oropharynx moist, no oral exudates, nose with minor dried blood in the anterior nares. No active bleeding.[] Eyes: PERRLA, EOMI, conjunctiva normal, no discharge. [] Neck: Normal range of motion, no tenderness, supple, no stridor. [] Cardiovascular:Heart rate regular rhythm, no murmur [] Lungs & Thorax: Bilateral breath sounds clear to auscultation [] Abdomen: Bowel sounds normal, gravid uterus, no masses, no pulsatile masses. [] Skin: Warm, dry, no erythema, no rash. [] Back: No tenderness, no CVA tenderness. [] Extremities: No tenderness, no cyanosis, no clubbing, ROM intact, no edema. [] Neurologic: Alert and oriented X 3, normal motor function, normal sensory function, no focal deficits noted. [] Psychologic: Affect normal, judgement normal, mood normal. [] Current Patient Data Vital Signs Vital Signs Date Time Temp Pulse Resp B/P (MAP) Pulse Ox O2 Delivery O2 Flow Rate FiO2 08/30/19 09:25 98.7 71 18 100 Room Air Lab Results Laboratory Tests Test 08/30/19 09:43 White Blood Count 6.8 x10^3/uL (4.0-11.0) Red Blood Count 3.37 x10^6/uL (3.50-5.40) L Hemoglobin 11.3 g/dL (12.0-15.5) L Hematocrit 33.2 % (36.0-47.0) L Mean Corpuscular Volume 99 fL (79-100) Mean Corpuscular Hemoglobin 33 pg (25-35) Mean Corpuscular Hemoglobin Concent 34 g/dL (31-37) Red Cell Distribution Width 13.3 % (11.5-14.5) Platelet Count 238 x10^3/uL (140-400) Neutrophils (%) (Auto) 62 % (31-73) Lymphocytes (%) (Auto) 28 % (24-48) Monocytes (%) (Auto) 8 % (0-9) Eosinophils (%) (Auto) 2 % (0-3) Basophils (%) (Auto) 0 % (0-3) Neutrophils # (Auto) 4.2 x10^3uL (1.8-7.7) Lymphocytes # (Auto) 1.9 x10^3/uL (1.0-4.8) Monocytes # (Auto) 0.5 x10^3/uL (0.0-1.1) Eosinophils # (Auto) 0.1 x10^3/uL (0.0-0.7) Basophils # (Auto) 0.0 x10^3/uL (0.0-0.2) Sodium Level 139 mmol/L (136-145) Potassium Level 3.7 mmol/L (3.5-5.1) Chloride Level 106 mmol/L (98-107) Carbon Dioxide Level 26 mmol/L (21-32) Anion Gap 7 (6-14) Blood Urea Nitrogen 6 mg/dL (7-20) L Creatinine 0.5 mg/dL (0.6-1.0) L Estimated GFR (Cockcroft-Gault) 188.5 BUN/Creatinine Ratio 12 (6-20) Glucose Level 80 mg/dL (70-99) Calcium Level 8.7 mg/dL (8.5-10.1) Total Bilirubin 0.3 mg/dL (0.2-1.0) Aspartate Amino Transferase (AST) 23 U/L (15-37) Alanine Aminotransferase (ALT) 27 U/L (14-59) Alkaline Phosphatase 51 U/L (46-116) Total Protein 7.2 g/dL (6.4-8.2) Albumin 3.3 g/dL (3.4-5.0) L Albumin/Globulin Ratio 0.8 (1.0-1.7) L EKG EKG [] Radiology/Procedures Radiology/Procedures [] Course & Med Decision Making Course & Med Decision Making Pertinent Labs and Imaging studies reviewed. (See chart for details) Patient's labs do show mild anemia with hemoglobin 11.3. The patient has been given a liter of normal saline. She is feeling better at this time. I've given her guidance about Afrin use as well as techniques for direct pressure to stop nosebleeds. She states verbal understanding. She is stable for discharge at this time. [] Dragon Disclaimer Dragon Disclaimer This electronic medical record was generated, in whole or in part, using a voice recognition dictation system. Departure Departure: Impression: Primary Impression: Anterior epistaxis Disposition: 01 HOME, SELF-CARE Condition: STABLE Referrals: IAN ALEX (PCP) Patient Instructions: Nosebleed, [id number] KERRY ORELLANA DO Aug 30, 2019 10:21
[2019-08-30 10:55] VITALS: BP 131/52
== END 2019-08-30 10:55 | disposition home or self-care (01) ==
LOC: ER 09:21
DX: O26.892 Other specified pregnancy related conditions, second trimester (principal); R04.0 Epistaxis; R42 Dizziness and giddiness; Z3A.00 Weeks of gestation of pregnancy not specified
CPT/HCPCS: 36415; 80053; 85025; 96360; 99284-25; J7030

== ENCOUNTER → 2019-12-21 | Outpatient (CLI) | payer MEDICAID ==
--- NOTE | 2019-12-21 17:18 | RAD ---
Examination: Limited right breast ultrasound. INDICATION: 19-year-old woman recently reports an enlarging mass in the upper outer right breast. It has been present for months but enlarged during her and she "wants it out". COMPARISON: None. TECHNIQUE: Grayscale and color Doppler imaging of the area of palpable concern in the upper outer right breast was performed. This identified an oval, parallel orientation mixed solid and cystic vascular mass measuring 3.5 x 1.5 x 3.0 cm at the 10:00 position 10 cm from the nipple. Incidental superficial sonographically benign cysts at the 9:00 position 6 and 8 cm from the nipple, measuring 1.3 and 1.1 cm in length were also identified. IMPRESSION: Incomplete. Both breasts need additional imaging with bilateral baseline diagnostic mammogram. Unfortunately, the schedule was not permissive of additional diagnostic breast imaging with mammography at the time the patient was seen for ultrasound so attempts will be made to reschedule her for a baseline diagnostic mammogram to confirm the absence of any additional clinically relevant imaging findings prior to definitive management of the patient's palpable mass in the upper outer right breast which should be considered for biopsy. It is amenable to ultrasound-guided core needle biopsy percutaneously but if the patient would prefer, surgical excisional biopsy is an acceptable alternative. She should have her bilateral baseline diagnostic mammogram prior to any invasive breast procedures however to minimize the risk of predictably positive margins should the sonographic findings alone be pursued for biopsy, especially such biopsy is performed by excision. BI-RADS Category 0 Incomplete. Needs additional imaging evaluation. Recommend bilateral digital diagnostic mammogram. This can be 2-D. Our breast imaging staff will assist with arranging follow-up.
== END | disposition home or self-care (01) ==
LOC: US 12:55
PROVIDERS: ATTEND Obstetrics & Gynecology
DX: N63.11 Unspecified lump in the right breast, upper outer quadrant (principal)
CPT/HCPCS: 76641

== ENCOUNTER → 2019-12-26 | Outpatient (CLI) | payer MEDICAID ==
--- NOTE | 2019-12-26 15:44 | RAD ---
Examination: Bilateral digital diagnostic mammogram. INDICATION: 19-year-old woman with a palpable mass in the upper outer quadrant right breast that enlarged during and which is tender. Diagnostic ultrasound identified a solid mass that was recommended for mammographic correlation. COMPARISON: Limited right breast ultrasound of 12/21/2019 TECHNIQUE: CC and MLO views of both breasts were obtained in addition to an X CCL view of the right breast. Images were acquired with 2-D technique.. These were reviewed with computer-aided detection. FINDINGS: Extremely dense breast parenchyma. Nodular parenchymal pattern compatible with benign cystic change. The mass identified on ultrasound in the posterior upper outer right breast is obscured by the surrounding dense breast parenchyma. No suspicious microcalcifications, architectural distortion, skin thickening or nipple retraction is evident. IMPRESSION: Benign findings on bilateral digital diagnostic mammogram. Recommend clinical management which may include excisional or core needle biopsy of the palpable mass in the upper outer quadrant right breast. BI-RADS Category 2 Benign findings Patient entered into a reminder system with target due date for next mammogram.
== END | disposition home or self-care (01) ==
LOC: MAMMO 15:03
PROVIDERS: ATTEND Obstetrics & Gynecology
DX: N63.11 Unspecified lump in the right breast, upper outer quadrant (principal); N64.89 Other specified disorders of breast
CPT/HCPCS: 77066

== ENCOUNTER 2020-04-10 12:08 | Emergency (ER) | payer MEDICAID ==
[~2020-04-10] VITALS: Ht 165.1 cm; Wt 71.0 kg
[2020-04-10 12:56] LABS: BASO % 1 % (0-3); EOS # 0.1 x10^3/uL (0.0-0.7); EOS % 2 % (0-3); HEMATOCRIT 38.3 % (36.0-47.0); LYMPH # 2.6 x10^3/uL (1.0-4.8); LYMPH % 38 % (24-48); MEAN CORPUSCULAR HEMOGLOBIN 32 pg (25-35); MEAN CORPUSCULAR HGB CONC 34 g/dL (31-37); MEAN CORPUSCULAR VOLUME 94 fL (79-100); MONO # 0.4 x10^3/uL (0.0-1.1); MONO % 6 % (0-9); NEUT # 3.8 x10^3uL (1.8-7.7); NEUT % 55 % (31-73); PLATELET COUNT 334 x10^3/uL (140-400); RED BLOOD COUNT 4.07 x10^6/uL (3.50-5.40); RED CELL DISTRIBUTION WIDTH 13.8 % (11.5-14.5); WHITE BLOOD COUNT 6.9 x10^3/uL (4.0-11.0)
[2020-04-10] MEDS ORDERED: IOHEXOL 300 MG/ML 75 ML VIAL. IV ONE (13:00)
[2020-04-10 13:01] LABS: CALCIUM 9.1 mg/dL (8.5-10.1); CREATININE 0.7 mg/dL (0.6-1.0); GFR 126.6; POTASSIUM 3.6 mmol/L (3.5-5.1)
[2020-04-10 13:06] LABS: ALBUMIN 4.2 g/dL (3.4-5.0); TOTAL BILIRUBIN 0.3 mg/dL (0.2-1.0); TOTAL PROTEIN 8.3 g/dL (6.4-8.2)
[2020-04-10 13:18] LABS: BACTERIA,URINE 0 /HPF (0-FEW); BILIRUBIN,URINE NEG (NEG); CLARITY,URINE TURBID; COLOR,URINE YELLOW; GLUCOSE,URINE NEG (NEG); NITRITE,URINE NEG (NEG); SQUAMOUS EPITHELIAL CELL,UR FEW /LPF; WBC,URINE TNTC /HPF (0-4)
[2020-04-10] MEDS ORDERED: HYDR-3165 PO (13:37)
--- NOTE | 2020-04-10 13:37 | PHYS DOC ---
Past History Past Medical History: Asthma, Kidney Stones, Migraines, Ovarian Cyst, UTI, Other Additional Past Medical Histor: frequent nose bleed Past Surgical History: Tonsillectomy, Other Additional Past Surgical Histo: surgery on nose as child for nose bleed Smoking: Non-smoker Alcohol Use: None Drug Use: None General Adult EDM: Chief Complaint: ABDOMINAL PAIN HPI: HPI: 20-year-old female presents with right lower abdominal pain that radiates around to her right flank. It is a deep cramping pain that is moderate to severe in intensity. Patient states the pain started yesterday but is worse today. She does have a history of kidney stones in the past. She was able to pass it without intervention. She thinks that she has had some blood in her urine. She denies fever chills. She has no other complaints at this time. Review of Systems: Review of Systems: Constitutional: Denies fever or chills Eyes: Denies change in visual acuity HENT: Denies nasal congestion or sore throat Respiratory: Denies cough or shortness of breath Cardiovascular: Denies chest pain or edema GI: Right lower quadrant abdominal pain. Denies nausea, vomiting, bloody stools or diarrhea : Denies dysuria Musculoskeletal: Denies back pain or joint pain Integument: Denies rash Neurologic: Denies headache, focal weakness or sensory changes Endocrine: Denies polyuria or polydipsia Lymphatic: Denies swollen glands Psychiatric: Denies depression or anxiety Heart Score: Risk Factors: Risk Factors: DM, Current or recent (<one month) smoker, HTN, HLP, family hist ory of CAD, obesity. Risk Scores: Score 0 - 3: 2.5% MACE over next 6 weeks - Discharge Home Score 4 - 6: 20.3% MACE over next 6 weeks - Admit for Clinical Observation Score 7 - 10: 72.7% MACE over next 6 weeks - Early Invasive Strategies Current Medications: Current Meds: Current Medications Medications (Trade) Dose Ordered Sig/Oumar Start Time Stop Time Status Last Admin Dose Admin Iohexol (Omnipaque 300 Mg/ml) 75 ml 1X ONCE 04/10/20 13:00 04/10/20 13:01 DC 04/10/20 13:04 75 ML Allergies: Allergies: Allergies Coded Allergies Type Severity Reaction Last Updated Verified No Known Drug Allergies 04/10/20 No Physical Exam: PE: Constitutional: Well developed, well nourished, no acute distress, non-toxic appearance. [] HENT: Normocephalic, atraumatic, bilateral external ears normal, oropharynx moist, no oral exudates, nose normal. [] Eyes: PERRLA, EOMI, conjunctiva normal, no discharge. [] Neck: Normal range of motion, no tenderness, supple, no stridor. [] Cardiovascular: Heart rate regular rhythm, no murmur [] Lungs & Thorax: Bilateral breath sounds clear to auscultation [] Abdomen: Bowel sounds normal, soft, mild suprapubic tenderness, no masses, no pulsatile masses. [] Skin: Warm, dry, no erythema, no rash. [] Back: No tenderness, right-sided CVA tenderness. [] Extremities: No tenderness, no cyanosis, no clubbing, ROM intact, no edema. [] Neurologic: Alert and oriented X 3, normal motor function, normal sensory function, no focal deficits noted. [] Psychologic: Affect normal, judgement normal, mood normal. [] Current Patient Data: Labs: Laboratory Tests Test 04/10/20 12:35 04/10/20 12:40 04/10/20 12:54 Urine Collection Type Unknown Urine Color Yellow Urine Clarity Turbid Urine pH 6.5 Urine Specific [place] >=1.030 Urine Protein 100 mg/dl (NEG-TRACE) Urine Glucose (UA) Neg mg/dL (NEG) Urine Ketones (Stick) Neg mg/dL (NEG) Urine Blood Large (NEG) Urine Nitrite Neg (NEG) Urine Bilirubin Neg (NEG) Urine Urobilinogen Dipstick 1.0 mg/dL (0.2 mg/dL) Urine Leukocyte Esterase Large (NEG) Urine RBC 11-20 /HPF (0-2) Urine WBC Tntc /HPF (0-4) Urine Squamous Epithelial Cells Few /LPF Urine Bacteria 0 /HPF (0-FEW) Urine Mucus Slight /LPF White Blood Count 6.9 x10^3/uL (4.0-11.0) Red Blood Count 4.07 x10^6/uL (3.50-5.40) Hemoglobin 13.0 g/dL (12.0-15.5) Hematocrit 38.3 % (36.0-47.0) Mean Corpuscular Volume 94 fL (79-100) Mean Corpuscular Hemoglobin 32 pg (25-35) Mean Corpuscular Hemoglobin Concent 34 g/dL (31-37) Red Cell Distribution Width 13.8 % (11.5-14.5) Platelet Count 334 x10^3/uL (140-400) Neutrophils (%) (Auto) 55 % (31-73) Lymphocytes (%) (Auto) 38 % (24-48) Monocytes (%) (Auto) 6 % (0-9) Eosinophils (%) (Auto) 2 % (0-3) Basophils (%) (Auto) 1 % (0-3) Neutrophils # (Auto) 3.8 x10^3uL (1.8-7.7) Lymphocytes # (Auto) 2.6 x10^3/uL (1.0-4.8) Monocytes # (Auto) 0.4 x10^3/uL (0.0-1.1) Eosinophils # (Auto) 0.1 x10^3/uL (0.0-0.7) Basophils # (Auto) 0.0 x10^3/uL (0.0-0.2) Sodium Level 142 mmol/L (136-145) Potassium Level 3.6 mmol/L (3.5-5.1) Chloride Level 106 mmol/L (98-107) Carbon Dioxide Level 29 mmol/L (21-32) Anion Gap 7 (6-14) Blood Urea Nitrogen 8 mg/dL (7-20) Creatinine 0.7 mg/dL (0.6-1.0) Estimated GFR (Cockcroft-Gault) 126.6 BUN/Creatinine Ratio 11 (6-20) Glucose Level 91 mg/dL (70-99) Calcium Level 9.1 mg/dL (8.5-10.1) Total Bilirubin 0.3 mg/dL (0.2-1.0) Aspartate Amino Transferase (AST) 16 U/L (15-37) Alanine Aminotransferase (ALT) 20 U/L (14-59) Alkaline Phosphatase 78 U/L (46-116) Total Protein 8.3 g/dL (6.4-8.2) H Albumin 4.2 g/dL (3.4-5.0) Albumin/Globulin Ratio 1.0 (1.0-1.7) POC Urine HCG, Qualitative hcg negative (Negative) Vital Signs: Vital Signs Date Time Temp Pulse Resp B/P (MAP) Pulse Ox O2 Delivery O2 Flow Rate FiO2 04/10/20 12:08 98.1 75 18 101/60 (74) 98 Room Air EKG: EKG: [] Radiology/Procedures: Radiology/Procedures: [] Course & Med Decision Making: Course & Med Decision Making Pertinent Labs and Imaging studies reviewed. (See chart for details) The patient's labs are unremarkable her urinalysis is negative for infection, but she has significant blood in the urine. I suspect kidney stone. CT did not show definitive kidney stone so she may have recently passed one. She also has moderate stool burden. I have advised that she do a bowel cleanout which made her feel better. She is stable for discharge at this time. I will give her a short course of [place] 5/325 and advised that she not breast-feed on this medication. [] Dragon Disclaimer: Dragon Disclaimer: This electronic medical record was generated, in whole or in part, using a voice recognition dictation system. Departure Departure: Impression: Primary Impression: Right lower quadrant abdominal pain Additional Impressions: Hematuria Qualified Codes: R31.9 - Hematuria, unspecified Constipation by delayed colonic transit Disposition: HOME/RESIDENCE PRIOR TO ADM Condition: STABLE Referrals: TRUDY ROY MD (PCP) Patient Instructions: Constipation, Adult, [id number], Hematuria, Adult Scripts Hydrocodone Bit/Acetaminophen (NORCO 5-325 TABLET) 1 Each Tablet 1 TAB PO PRN Q6HRS PRN for PAIN, #10 TAB 0 Refills Prov: KERRY ORELLANA DO 04/10/20 Justification of Admission: Justification of Admission: Justification of Admission Dx: N/A KERRY ORELLANA DO Apr 10, 2020 13:37
--- NOTE | 2020-04-10 13:45 | RAD ---
PQRS Compliance Statement: One or more of the following individualized dose reduction techniques were utilized for this examination: 1. Automated exposure control 2. Adjustment of the mA and/or kV according to patient size 3. Use of iterative reconstruction technique CT ABD PELV W/ IV CONTRST ONLY Clinical Indication: Reason: RLQ abdominal pain / Spl. Instructions: / History: Difficulty urinating, nausea and vomiting. Comparison: CT abdomen and pelvis without contrast, February 19, 2018. Technique: Helical CT imaging of the abdomen and pelvis is performed after 75 cc of Omnipaque 300 IV contrast. Oral contrast not administered. Findings: Lung bases clear. Cardiac size normal. Dome of the liver incompletely imaged. The liver, gallbladder, spleen, pancreas, adrenal glands, and abdominal aorta caliber are normal. Small amount of contrast is already seen in the upper collecting system. Kidneys enhance symmetrically, no hydronephrosis. The stomach is unremarkable. There is no dilated small bowel. There is no colon wall thickening. The appendix is normal. There is moderate colon stool volume. No abdominal adenopathy or free fluid. Anteverted uterus. Urinary bladder is decompressed, accentuating wall thickness. There is trace pelvic free fluid, probably physiologic. No acute bone abnormality. IMPRESSION: 1. Urinary bladder is decompressed accentuating wall thickness. Suggest correlation with urinalysis to exclude cystitis. 2. There is otherwise no acute abdominal or pelvic abnormality. The appendix is normal. 3. Moderate colon stool volume. Correlate for constipation. Electronically signed by: Neftali Meléndez MD (04/10/2020 1:42 PM) [id number]
[2020-04-10 14:00] VITALS: BP 112/56
== END 2020-04-10 14:00 | disposition home or self-care (01) ==
LOC: ER 12:08
DX: J45.909 Unspecified asthma, uncomplicated (principal); Z87.442 Personal history of urinary calculi; G43.909 Migraine, unspecified, not intractable, without status migrainosus; Z87.440 Personal history of urinary (tract) infections
CPT/HCPCS: 36415; 74177; 80053; 81001; 81025; 85025; 87086; 99285; Q9967

== ENCOUNTER 2020-12-17 18:01 | Emergency (ER) | payer MEDICAID ==
[~2020-12-17] VITALS: Ht 165.1 cm; Wt 66.7 kg
[~2020-12-17 18:01] MED LIST changes: +HYDR-3165 PO
--- NOTE | 2020-12-17 18:36 | EKG ---
[address] [address] Test Date: 2020-12-17 Test Time: 18:16:57 Pat Name: HARINDER DELAROSA Department: Room: Gender: F General Service Technician: TERESO : 2000 Requested By: VIANCA ODEN Order Number: [id number] Reading MD: Measurements Intervals [place] Rate: 68 P: 35 ND: 130 QRS: 66 QRSD: 78 T: 36 QT: 364 QTc: 391 Interpretive Statements SINUS RHYTHM OTHERWISE NORMAL ECG RI6.02 No previous ECG available for comparison
[2020-12-17 18:52] LABS: BASO % 1 % (0-3); EOS # 0.1 x10^3/uL (0.0-0.7); EOS % 2 % (0-3); HEMATOCRIT 38.5 % (36.0-47.0); HEMOGLOBIN 12.9 g/dL (12.0-15.5); LYMPH # 2.6 x10^3/uL (1.0-4.8); LYMPH % 48 % (24-48); MEAN CORPUSCULAR HEMOGLOBIN 32 pg (25-35); MEAN CORPUSCULAR HGB CONC 34 g/dL (31-37); MEAN CORPUSCULAR VOLUME 96 fL (79-100); MONO # 0.3 x10^3/uL (0.0-1.1); MONO % 6 % (0-9); NEUT # 2.3 x10^3uL (1.8-7.7); NEUT % 43 % (31-73); PLATELET COUNT 279 x10^3/uL (140-400); RED CELL DISTRIBUTION WIDTH 12.9 % (11.5-14.5); WHITE BLOOD COUNT 5.5 x10^3/uL (4.0-11.0)
--- NOTE | 2020-12-17 18:52 | PHYS DOC ---
Past History Past Medical History: Asthma, Hyperthyroid Additional Past Medical Histor: frequent nose bleed Past Surgical History: Tonsillectomy, Other Additional Past Surgical Histo: nasal cauterization Smoking: Non-smoker Alcohol Use: None Drug Use: None General Adult EDM: Chief Complaint: CHEST WALL PAIN HPI: HPI: Patient is a 20-year-old female who presents with chest pain under left breast and left-sided back. Patient reports pain is a stabbing, intermittent pain since yesterday. Patient reports pain is worse with bending over. Patient denies shortness of breath, nausea/vomiting, recent illness or cough. Reporting pain is 7 out of 10. Denies take anything at home for pain. Patient has a history of hypothyroid. Review of Systems: Review of Systems: Constitutional: Denies fever or chills Eyes: Denies change in visual acuity HENT: Denies nasal congestion or sore throat Respiratory: Denies cough or shortness of breath Cardiovascular: Reports chest pain denies edema GI: Denies abdominal pain, nausea, vomiting, bloody stools or diarrhea : Denies dysuria Musculoskeletal: Denies back pain or joint pain Integument: Denies rash Neurologic: Denies headache, focal weakness or sensory changes Endocrine: Denies polyuria or polydipsia Lymphatic: Denies swollen glands Psychiatric: Denies depression or anxiety Allergies: Allergies: Allergies Coded Allergies Type Severity Reaction Last Updated Verified No Known Drug Allergies 04/10/20 No Physical Exam: PE: Constitutional: Well developed, well nourished, no acute distress, non-toxic appearance. [] HENT: Normocephalic, atraumatic, bilateral external ears normal, oropharynx moist, no oral exudates, nose normal. [] Eyes: PERRLA, EOMI, conjunctiva normal, no discharge. [] Neck: Normal range of motion, no tenderness, supple, no stridor. [] Cardiovascular:Heart rate regular rhythm, no murmur [] Lungs & Thorax: Bilateral breath sounds clear to auscultation [] Abdomen: Bowel sounds normal, soft, no tenderness, no masses, no pulsatile mas ses. [] Skin: Warm, dry, no erythema, no rash. [] Back: No tenderness, no CVA tenderness. [] Extremities: No tenderness, no cyanosis, no clubbing, ROM intact, no edema. [] Neurologic: Alert and oriented X 3, normal motor function, normal sensory function, no focal deficits noted. [] Psychologic: Affect normal, judgement normal, mood normal. [] Current Patient Data: Vital Signs: Vital Signs Date Time Temp Pulse Resp B/P (MAP) Pulse Ox O2 Delivery O2 Flow Rate FiO2 12/17/20 18:12 98.2 70 18 115/66 (82) 98 Room Air EKG: EKG: Sinus rhythm, heart rate 68 bpm. [] Radiology/Procedures: Radiology/Procedures: []NDICATION: Reason: chest wall pain / Spl. Instructions: / History: COMPARISON: None. FINDINGS: Single view of chest obtained. No focal airspace consolidation. Cardiomediastinal contour unremarkable. No acute osseous abnormality. IMPRESSION: * No focal airspace consolidation or edema. Electronically signed by: Frank Pierre MD (12/17/2020 7:33 PM) [id number] Heart Score: Risk Factors: Risk Factors: DM, Current or recent (<one month) smoker, HTN, HLP, family history of CAD, obesity. Risk Scores: Score 0 - 3: 2.5% MACE over next 6 weeks - Discharge Home Score 4 - 6: 20.3% MACE over next 6 weeks - Admit for Clinical Observation Score 7 - 10: 72.7% MACE over next 6 weeks - Early Invasive Strategies Course & Med Decision Making: Course & Med Decision Making Pertinent Labs and Imaging studies reviewed. (See chart for details) []Patient is a 20-year-old female who presents with chest pain under left breast and left-sided back. Patient reports pain is a stabbing, intermittent pain since yesterday. Patient reports pain is worse with bending over. Patient denies shortness of breath, nausea/vomiting, recent illness or cough. Reporting pain is 7 out of 10. Denies take anything at home for pain. Patient has a history of hypothyroid. EKG shows sinus rhythm. Chest x-ray is negative for any acute abnormalities. Labs all unremarkable. Patient is discharged to home for chest wall pain. Patient to take ibuprofen at home for discomfort. Troponin is negative. Patient is return to emergency room with worsening symptoms or concerns. Otherwise follow-up with PCP for further management. Vanessaon Disclaimer: Dragheladio Disclaimer: This electronic medical record was generated, in whole or in part, using a voice recognition dictation system. Departure Departure: Impression: Primary Impression: Chest wall pain Disposition: 01 DC HOME SELF CARE/HOMELESS Condition: STABLE Referrals: HOLLAND PALACIOS (PCP) Patient Instructions: Chest Wall Pain, [id number] Additional Instructions: You were seen in the emergency room today for pain under your left breast. Chest x-ray is negative for any acute abnormalities. Labs are negative for any abnormality. Take ibuprofen at home for discomfort. Please return to emergency room with worsening symptoms or concerns. Otherwise follow-up with PCP for further management. EMERGENCY DEPARTMENT GENERAL DISCHARGE INSTRUCTIONS Thank you for coming to [facility] (ED) today and trusting us with you care. We trust that you had a positivie experience in our Emergency Department. If you wish to speak to the department management, you may call the director at [phone]. YOUR FOLLOW UP INSTRUCTIONS ARE FOLLOWS: 1. Do you have a private Doctor? If you do not have a private doctor, please ask for a resource list of physicians or clinics that may be able to assist you with follow up care. 2. The Emergency Physician has interpreted your x-rays. The X-Ray specialist will also review them. If there is a change in the findings, you will be notified in 48 hours when at all possible. 3. A lab test or culture has been done, your results will be reviewed and you will be notified if you need a change in treatment. ADDITIONAL INSTRUCTIONS AND INFORMATION: 1. Your care today has been supervised by a physician who is specially trained in emergency care. Many problems require more than one evaluation for a complete diagnosis and treatment. We recommend that you schedule your follow up appointment as recommended to ensure complete treatment of you illness or injury. If you are unable to obtain follow up care and continue to have a problem, or if your condition worsens, we recommend that you return to the ED. 2. We are not able to safely determine your condition over the phone nor are we able to give sound medical advice over the phone. For these safety reasons, if you call for medical advice we will ask you to come to the ED for further evaluation. 3. If you have any questions regarding these discharge instructions please call the ED at [phone]. SAFETY INFORMATION: In the interest of safety, wellness, and injury prevention; we encourage you to wear your sealbelt, if you smoke; quite smoking, and we encourage family to use a protective helmet for bicycling and other sporting events that present an increased risk for head injury. IF YOUR SYMPTOMS WORSEN OR NEW SYMPTOMS DEVELOP, OR YOU HAVE CONCERNS ABOUT YOUR CONDITION; OR IF YOUR CONDITION WORSENS WHILE YOU ARE WAITING FOR YOUR FOLLOW UP APPOINTMENT; EITHER CONTACT YOUR PRIMARY CARE DOCTOR, THE PHYSICIAN WHOSE NAME AND NUMBER YOU WERE GIVEN, OR RETURN TO THE ED IMMEDIATELY. VIANCA ODEN APRN Dec 17, 2020 18:52
[2020-12-17 19:03] LABS: CREATININE 0.7 mg/dL (0.6-1.0); GFR 126.6
[2020-12-17 19:09] LABS: ALBUMIN 4.1 g/dL (3.4-5.0); ALBUMIN/GLOBULIN RATIO 1.1 (1.0-1.7); TOTAL BILIRUBIN 0.3 mg/dL (0.2-1.0); TOTAL PROTEIN 7.8 g/dL (6.4-8.2)
--- NOTE | 2020-12-17 19:35 | RAD ---
INDICATION: Reason: chest wall pain / Spl. Instructions: / History: COMPARISON: None. FINDINGS: Single view of chest obtained. No focal airspace consolidation. Cardiomediastinal contour unremarkable. No acute osseous abnormality. IMPRESSION: * No focal airspace consolidation or edema. Electronically signed by: Frank Pierre MD (12/17/2020 7:33 PM) [id number]
[2020-12-17 20:16] VITALS: BP 100/46
== END 2020-12-17 20:18 | disposition home or self-care (01) ==
LOC: ER 18:01
DX: R07.89 Other chest pain (principal); J45.909 Unspecified asthma, uncomplicated; E05.90 Thyrotoxicosis, unspecified without thyrotoxic crisis or storm
CPT/HCPCS: 36415; 71045; 80053; 84484; 85025; 93005; 99285

== ENCOUNTER 2021-11-02 11:36 | Emergency (ER) | payer MEDICAID ==
[~2021-11-02] VITALS: Ht 165.1 cm; Wt 72.8 kg
[2021-11-02 12:00] VITALS: BP 106/76
--- NOTE | 2021-11-02 12:28 | PHYS DOC ---
Past History Past Medical History: Asthma, Hyperthyroid Additional Past Medical Histor: frequent nose bleed Past Surgical History: Tonsillectomy, Other Additional Past Surgical Histo: nasal cauterization Smoking: Non-smoker Alcohol Use: None Drug Use: None Adult General Chief Complaint Chief Complaint: HEADACHE HPI HPI Patient is a 21-year-old female patient presented to the ED today complaining of a 10 out of 10 generalized headache, body aches, symptoms began yesterday. He is also complaining of nausea that began today. Denies any vomiting, denies any chance she is . Denies any neck pain. Denies any fever, coughing or congestion. She states she got exposed to COVID-19 through a neighbor who tested positive a couple days ago. Denies any other specific exacerbating or relieving her headache. She states she has tried Tylenol, ibuprofen and Excedrin with no relief to her headaches. Denies this being a thunderclap headache. Denies being the worst headache in her life. Patient states she did not receive the COVID-vaccine because "I do not want to" Review of Systems Review of Systems Constitutional: Reports body aches, denies fever Eyes: Denies change in visual acuity, redness, or eye pain [] HENT: Denies nasal congestion or sore throat [] Respiratory: Denies cough or shortness of breath [] Cardiovascular: No additional information not addressed in HPI [] GI: Reports nausea. Denies abdominal pain, vomiting, bloody stools or diarrhea [] : Denies dysuria or hematuria [] Musculoskeletal: Denies back pain or joint pain [] Integument: Denies rash or skin lesions [] Neurologic: Reports headache, denies, focal weakness or sensory changes [] All other systems were reviewed and found to be within normal limits, except as documented in this note. Allergies Allergies Allergies Coded Allergies Type Severity Reaction Last Updated Verified No Known Drug Allergies 04/10/20 No Physical Exam Physical Exam Constitutional: Well developed, well nourished, no acute distress, non-toxic appearance. [] HENT: Normocephalic, atraumatic, bilateral external ears normal, oropharynx moist, no oral exudates, nose normal. [] Eyes: PERRLA, EOMI, conjunctiva normal, no discharge. [] Neck: Normal range of motion, no tenderness, supple, no stridor. [] Cardiovascular:Heart rate regular rhythm, no murmur [] Lungs & Thorax: Bilateral breath sounds clear to auscultation [] Abdomen: Bowel sounds normal, soft, no tenderness, no masses, no pulsatile masses. [] Skin: Warm, dry, no erythema, no rash. [] Back: No tenderness, no CVA tenderness. [] Extremities: No tenderness, no cyanosis, no clubbing, ROM intact, no edema. [] Neurologic: Alert and oriented X 3, normal motor function, normal sensory function, no focal deficits noted. Cranial nerves II through XII intact Psychologic: Affect normal, judgement normal, mood normal. [] Current Patient Data Vital Signs Vital Signs Date Time Temp Pulse Resp B/P (MAP) Pulse Ox O2 Delivery O2 Flow Rate FiO2 11/02/21 12:00 98.3 76 20 106/76 (86) 98 Room Air EKG EKG [] Radiology/Procedures Radiology/Procedures [] Heart Score C/O Chest Pain: N/A Risk Factors: Risk Factors: DM, Current or recent (<one month) smoker, HTN, HLP, family hist ory of CAD, obesity. Risk Scores: Risk Factors: DM, Current or recent (<one month) smoker, HTN, HLP, family history of CAD, obesity. Course & Med Decision Making Course & Med Decision Making Pertinent Labs and Imaging studies reviewed. (See chart for details) This is a 21-year-old female patient presenting to the ED today with headache, body aches, nausea, symptoms for 2 days. Has been exposed to COVID-19. Was tested for COVID and influenza and discharged to home. Results will be called to her. She is unvaccinated against COVID-19. Supportive care measures recommended. Return precautions provided Dragon Disclaimer Dragon Disclaimer This electronic medical record was generated, in whole or in part, using a voice recognition dictation system. Departure Departure: Impression: Primary Impression: Person under investigation for COVID-19 Additional Impressions: Headache Body aches Nausea Disposition: HOME / SELF CARE / HOMELESS Condition: STABLE Referrals: HOLLAND PALACIOS (PCP) follow up in one week with your doctor Patient Instructions: Headache, FAQs, Viral Infections Additional Instructions: Your evaluated in the emergency room with symptoms suspicious of a viral illness like COVID19. Please quarantine yourself until you get results from us on your COVID and influenza tests. Please push fluids, maintain good and hygiene, take Tylenol or Motrin for pain or fever. Problem Qualifiers Additional Impressions: Headache Headache type: unspecified Headache chronicity pattern: acute headache Intractability: not intractable Qualified Codes: R51.9 - Headache, unspecified JANET METZGER APRN Nov 02, 2021 12:28
[2021-11-02] MEDS ORDERED: KETOROLAC 15 MG/ML VIAL. IM ONE (12:45)
[2021-11-02 13:14] LABS: INFLUENZA A PATIENT NEGATIVE (NEGATIVE); INFLUENZA B PATIENT NEGATIVE (NEGATIVE)
== END 2021-11-02 12:43 | disposition home or self-care (01) ==
LOC: ER 11:36
DX: U07.1 COVID-19 (principal); J45.909 Unspecified asthma, uncomplicated; E05.90 Thyrotoxicosis, unspecified without thyrotoxic crisis or storm
CPT/HCPCS: 87804; 96372; 99283; C9803; J1885; U0003